=== PATIENT | female | born 1935 | race Caucasian/White ===

== ENCOUNTER 2024-06-13 12:11 | Inpatient (IN) | payer MEDICARE, OTHER, SELFPAY ==
[2024-06-13] VITALS (16 sets, daily range): BP systolic 137–189; BP diastolic 76–104; PULSE 72–130; RESP 14–26; TEMP 36.7–36.8; O2SAT 96–100; BMI 18.7
--- NOTE | ~2024-06-13 | MR_ITS ---
EXAMINATION: MR lumbar spine wo/w con DATE: 06/15/2024 16:00 INDICATION: lumbar spine . TECHNIQUE: Magnetic resonance imaging (MRI) of the lumbar spine was performed without and with 10 mL MultiHance field comp intravenous contrast. Sequences included sagittal T2-weighted FSE, sagittal T2- weighted FS FSE, sagittal T1-weighted FSE, and axial T2-weighted FSE. COMPARISON: None FINDINGS: The last fully formed and hydrated disc is designated L5-S1. Rudimentary disc at S1-S2. Tar mon[place] cysts at S1 and S2. Vertebral body hemangioma at L1. The marrow signal is benign and homogenous. Conus terminates at L1. Multilevel loss of disc height and hydration. 4 mm anterolisthesis at L4-5. N o abnormal enhancement. The following disc levels are specifically discussed: T11-T12: The disc does not extend beyond the endplate margin. There is mild facet joint osteoarthriti s. There is no neural foraminal stenosis. There is no central canal stenosis. T12-L1: The disc does not extend beyond the endplate margin. There is mild facet joint osteoarthritis . There is no neural foraminal stenosis. There is no central canal stenosis. L1-L2: Moderate diffuse bulge. 5 mm right foraminal protrusion. There is moderate bilateral facet jorge luis nt osteoarthritis. There is moderate bilateral neural foraminal stenosis. There is mild central canal stenosis. L2-L3: Moderate diffuse bulge. There is moderate bilateral facet joint osteoarthritis. There is moder ate right and mild left neural foraminal stenosis. There is mild central canal stenosis. L3-L4: Large diffuse bulge. There is moderate bilateral facet joint osteoarthritis. There is moderate bilateral neural foraminal stenosis. There is moderate central canal stenosis. L4-L5: Mild diffuse bulge with a superimposed 7 x 13 mm left subarticular extrusion extending 16 mm c ephalad along the posterior aspect of the L4 vertebral body. There is severe bilateral facet joint os teoarthritis. There is mild right and moderate left neural foraminal stenosis. There is severe centra l canal stenosis. L5-S1: Mild diffuse bulge with a broad-based 5 mm left lateral protrusion. There is moderate bilatera l facet joint osteoarthritis. There is moderate bilateral neural foraminal stenosis. There is no cent ral canal stenosis. IMPRESSION: 10 x 13 mm left subarticular L4-5 disc extrusion. Severe central canal stenosis at L4-5 secondary to degenerative disc, ligamentum and facet changes. Multilevel moderate neural foraminal narrowing. Moderate-severe degrees of facet arthropathy at all lumbar levels. Reviewed, dictated and finalized at location K. MACY PICKING TECH IMPRESSION: 10 x 13 mm left subarticular L4-5 disc extrusion. Severe central canal stenosis at L4-5 secondary to degenerative disc, ligamentu m and facet changes. Multilevel moderate neural foraminal narrowing. Moderate-severe degrees of facet arthropathy at all lumbar levels.
--- NOTE | ~2024-06-13 | US_ITS ---
EXAMINATION: US venous doppler [facility] DATE: 06/14/2024 08:44 INDICATION: Left lower limb swelling. TECHNIQUE: Grayscale ultrasound images without and with compression and Doppler ultrasound images of the left lower extremity veins were obtained. COMPARISON: None. FINDINGS: The visualized portions of left common femoral vein, profunda (deep) femoral vein, femoral vein, popl iteal vein, peroneal veins, posterior tibial veins, and greater saphenous vein outflow are patent. IMPRESSION: 1. No deep venous thrombosis. Reviewed, dictated and finalized at location A. ER
--- NOTE | ~2024-06-13 | CT_ITS ---
EXAMINATION: CT brain wo con DATE: 06/13/2024 13:12 INDICATION: Stroke TECHNIQUE: Computed tomography (CT) of the head was performed without intravenous contrast. Sagittal and coronal reconstructions were performed. The mA was adjusted according to patient size. Iterative reconstruction technique was employed. The dose-length product was 776.86 mGy-cm. COMPARISON: None FINDINGS: No acute intracranial hemorrhage, acute infarction or abnormal extra axial fluid collection. There is mild scattered white matter hypoattenuation consistent with chronic small vessel ischemic disease. S ymmetric prominence of the sulci consistent with mild age-appropriate diffuse cerebral volume loss. V entricles are normal and symmetric. No mass/mass effect. Torus palatinus. The orbits, paranasal sinus es and mastoid air cells are normal. IMPRESSION: 1. Normal aging brain. No acute intracranial process. Reviewed, dictated and finalized at location B. OCOMPOSITION KEYBOARD OPERATOR
--- NOTE | ~2024-06-13 | XR_ITS ---
EXAMINATION: XR chest 1V DATE: 06/13/2024 13:15 INDICATION: Leg weakness. TECHNIQUE: A single frontal view of the chest was obtained. COMPARISON: None. FINDINGS: There is mild scarring at the lung apices. No pleural effusion or pneumothorax. Cardiomegal y is noted. IMPRESSION: 1. Mild scarring at the lung apices. 2. Cardiomegaly. Reviewed, dictated and finalized at location A. IGERATION INSULATOR
--- NOTE | ~2024-06-13 | MR_ITS ---
EXAMINATION: MR brain/brain stem wo/w con DATE: 06/14/2024 09:09 INDICATION: Lower extremity weakness, left worse than right. TECHNIQUE: Magnetic resonance imaging (MRI) of the brain and brainstem was performed without and with 11 mL MultiHance intravenous contrast. COMPARISON: Head CT 06/13/2024 FINDINGS: There are scattered areas of nonspecific increased T2-weighted signal intensity in the cere bral white matter, which is within normal limits for the patient's age. There is no intracranial hemo rrhage, acute infarction, or abnormal intracranial mass lesion. The ventricles are normal in size. Th ere is mild mucosal thickening in the paranasal sinuses. The orbits are normal. The mastoid air cells are normal. IMPRESSION: 1. Normal aging brain. Reviewed, dictated and finalized at location A. ACT OPERATOR IMPRESSION: 1. Normal aging brain.
--- NOTE | 2024-06-13 13:01 | ECG_ITS ---
Test Date: 2024-06-13 13:20:04 Measurements Intervals [place] Rate: 90 P: 0 OK: 0 QRS: -61 QRSD: 86 T: 35 QT: 364 QTc: 447 Interpretive Statements SINUS RHYTHM FREQUENT ATRIAL PREMATURE COMPLEXES LEFT AXIS DEVIATION BORDERLINE AV CONDUCTION DELAY POSSIBLE RIGHT VENTRICULAR CONDUCTION DELAY DELAYED PRECORDIAL R/S TRANSITION BORDERLINE T WAVE ABNORMALITY- ANTERIOR LEADS ABNORMAL ECG BASELINE ARTIFACT- I, II, III, AVR, AVL, AVF, V1-V6 No previous ECG available for comparison Electronically Signed On 06-13-2024 13:34:39 SUPERVISOR TRANSFERRING AND BOXING by Catracho Tanner D.O.
[2024-06-13 13:30] LABS: Glucose Point of Care 96 mg/dl (65-105)
[2024-06-13 13:42] LABS: Basophils Absolute Auto 0.1 K/mm3 (0.0-0.1); Basophils Percent Auto 1.1 % (0.2-1.2); Eosinophils Percent Auto 0.5 % (0-4.4); Hematocrit 42.4 % (37.0-47.0); Hemoglobin 14.5 g/dL (12.0-15.0); Immature Granulocyte Absolute 0.01 K/mm3 (0.00-0.031); Immature Granulocyte Percent A 0.2 % (0-0.5); Lymphocytes Absolute Auto 0.67 K/mm3 (0.9-3.2); Lymphocytes Percent Auto 12.2 % (18.3-44.2); Mean Corpuscular HGB Conc 34.2 g/dl (32-36); Mean Corpuscular Hemoglobin 32.4 pg (26-34); Mean Corpuscular Volume 94.6 fl (80-100); Monocytes Absolute Auto 0.5 K/mm3 (0.1-0.6); Monocytes Percent Auto 8.9 % (2.6-8.5); Neutrophils Absolute Auto 4.2 K/mm3 (1.3-6.7); Neutrophils Percent Auto 77.1 % (45.5-73.1); Platelet Count Result 219 k/mm3 (150-375); Red Blood Count 4.48 M/mm3 (4.2-5.4); White Blood Count 5.5 K/mm3 (4.5-10.0)
[2024-06-13 13:56] LABS: Alanine Aminotransferase 16 U/L (6-35); Albumin Level 4.4 g/dL (3.5-5.1); Alkaline Phosphatase 57 U/L (38-126); Anion Gap 6 mmol/L (4-12); Aspartate Amino Transferase 31 U/L (14-36); Bilirubin,Total 2.5 mg/dL (0.2-1.3); Blood Urea Nitrogen 17 mg/dL (7-17); Calcium 9.5 mg/dL (8.4-10.2); Carbon Dioxide 29 mmol/L (22-30); Chloride 102 mmol/L (98-107); Estimated CRCL calculation 34 ml/min; Estimated Glomerular Filt Rate > 60; Glucose 108 mg/dL (65-110); Potassium 4.5 mmol/L (3.4-5.0); Sodium 137 mmol/L (137-145)
[2024-06-13 14:02] LABS: Prothrombin Time 13.7 Seconds (11.1-14.7)
[2024-06-13 14:03] LABS: Partial Thromboplastin Time 27.7 Seconds (22.3-36.8)
[2024-06-13 14:08] LABS: Troponin I 0.122 ng/mL (0.000-0.034)
--- NOTE | 2024-06-13 14:08 | ED_ITS ---
HPI - General Adult General Chief complaint: Extremity Problem,Nontraumatic Stated complaint: BLE weakness Time Seen by Provider: 06/13/24 12:32 History of Present Illness HPI narrative: Patient is a 88-year-old female who presents ER with bilateral lower extremity weakness. Left greater than right. Reports she has some achiness in her left applied. She was walking down steps yesterday when she suddenly developed weakness. No weakness in the upper extremities. No slurred speech. No headache. Does not see a doctor. Has significantly elevated blood pressures on arrival here. She is without nausea or vomiting. No chest pain. Had similar issue a year ago that resolved on its own. Related Data Allergies Allergy/AdvReac Type Severity Reaction Status Date / Time No Known Allergies Allergy Unknown Unverified 03/17/05 11:45 Review of Systems Review of Systems: All systems reviewed & are unremarkable except as noted in HPI and below Constitutional: Constitutional: Denies chills, Denies fever(s) and Reports weakness ENT: Reports system reviewed and no additional complaints, except as documented Cardiovascular: Cardiovascular: Reports no additional cardiovascular complaints Gastrointestinal: Gastrointestinal: Reports no additional gastrointestinal complaints Musculoskeletal: Musculoskeletal: Reports no additional musculoskeletal complaints PMFSH Past Medical History Medical History (Updated 06/13/24 @ 18:[address] MD) Healthy female adult Surgical History Surgical History (Updated 06/13/24 @ 14:[address] MD) No pertinent past surgical history Social History Social History Smoking status: Never smoker Alcohol intake: never Substance use: never Do You Feel Safe in your Home?: Yes Lack of Transportation: No Lack of Food: Never True Current Housing: I Have Housing Concerned About Future Housing: No Difficulty Paying Gas/Electric Bills: No Difficulty Paying for Meds: No Currently Unemployed: No Education: High School Diploma/GED Difficulty w/ Childcare or Family Care: No Spiritual care concerns: No Exam Narrative: GENERAL: Well-appearing, well-nourished, and in no acute distress. HEAD: Normocephalic, atraumatic. ENT: Mucous membranes moist. CHEST: Clear to auscultation. No respiratory distress. HEART: Regular rate and rhythm. Normal peripheral pulses. ABDOMEN: Soft, nontender, nondistended. EXTREMITIES: Normal range of motion. No edema. SKIN: Warm, dry, no rash. NEURO: Alert and oriented x3. No lower extremity drift. Heel-owens testing normal. Sensation grossly intact. PSYCH: Normal mood and affect. Course Course Emergency Course: patient resting comfortably. Informed patient and family of lab results and treatment plan. Discussed with hospitalist. Troponin not trending up Significant so we will give some lovenox. Vital Signs Vital signs: Vital Signs Temperature 98.2 F 06/13/24 12:26 Pulse Rate 105 H 06/13/24 12:26 Respiratory Rate 22 H 06/13/24 12:26 Blood Pressure 187/84 H 06/13/24 12:26 Pulse Oximetry 97 06/13/24 12:26 Temperature 98.2 F 06/13/24 12:26 Pulse Rate 72 06/13/24 18:00 Respiratory Rate 19 06/13/24 17:01 Blood Pressure 167/99 H 06/13/24 17:01 Pulse Oximetry 99 06/13/24 17:01 Oxygen Delivery Room Air 06/13/24 18:28 Medical Decision Making Vital Signs Vital Signs: Vital Signs Temperature 98.2 F 06/13/24 12:26 Pulse Rate 105 H 06/13/24 12:26 Respiratory Rate 22 H 06/13/24 12:26 Blood Pressure 187/84 H 06/13/24 12:26 Pulse Oximetry 97 06/13/24 12:26 Temperature 98.2 F 06/13/24 12:26 Pulse Rate 72 06/13/24 18:00 Respiratory Rate 19 06/13/24 17:01 Blood Pressure 167/99 H 06/13/24 17:01 Pulse Oximetry 99 06/13/24 17:01 Oxygen Delivery Room Air 06/13/24 18:28 Lab Data 06/13/24 13:31 06/13/24 13:31 Labs: Lab Results 06/13/24 06/13/24 06/13/24 Range/Units 13:28 13:31 16:20 WBC 5.5 (4.5-10.0) K/mm3 RBC 4.48 (4.2-5.4) M/mm3 Hgb 14.5 (12.0-15.0) g/dL Hct 42.4 (37.0-47.0) % MCV 94.6 (80-100) fl MCH 32.4 (26-34) pg MCHC 34.2 (32-36) g/dl RDW 13.0 (11.5-14.5) % Plt Count 219 (150-375) k/mm3 MPV 9.0 (7.4-10.4) fl Immature Gran % (Auto) 0.2 (0-0.5) % Neut % (Auto) 77.1 H (45.5-73.1) % Lymph % (Auto) 12.2 L (18.3-44.2) % [place] % (Auto) 8.9 H (2.6-8.5) % Eos % (Auto) 0.5 (0-4.4) % Baso % (Auto) 1.1 (0.2-1.2) % Lymph # (Auto) 0.67 L (0.9-3.2) K/mm3 [place] # (Auto) 0.5 (0.1-0.6) K/mm3 Eos # (Auto) 0.0 (0-0.3) K/mm3 Baso # (Auto) 0.1 (0.0-0.1) K/mm3 Abs Immat Gran (auto) 0.01 (0.00-0.031) K/mm3 Absolute Neuts (auto) 4.2 (1.3-6.7) K/mm3 Absolute Nucleated RBC 0.000 (0.0-0.012) K/mm3 Nucleated RBC % 0.0 (0.0-0.2) % PT 13.7 (11.1-14.7) Seconds INR 1.0 APTT 27.7 (22.3-36.8) Seconds Sodium 137 (137-145) mmol/L Potassium 4.5 (3.4-5.0) mmol/L Chloride 102 (98-107) mmol/L Carbon Dioxide 29 (22-30) mmol/L Anion Gap 6 (4-12) mmol/L BUN 17 (7-17) mg/dL Creatinine 0.80 (0.7-1.0) mg/dL Estim Creat Clear Calc 34 ml/min Estimated GFR > 60 (59 - ) Glucose 108 (65-110) mg/dL POC Capillary Glucose 96 (65-105) mg/dl Calcium 9.5 (8.4-10.2) mg/dL Total Bilirubin 2.5 H (0.2-1.3) mg/dL AST 31 (14-36) U/L ALT 16 (6-35) U/L Alkaline Phosphatase 57 (38-126) U/L Troponin I 0.122 H* 0.141 H* (0.000-0.034) ng/mL Total Protein 8.0 (6.3-8.2) g/dL Albumin 4.4 (3.5-5.1) g/dL Imaging Data Radiologist's impression: ITS Impressions Head CT 06/13/24 13:16 IMPRESSION: 1. Normal aging brain. No acute intracranial process. Chest X-Ray 06/13/24 13:21 IMPRESSION: 1. Mild scarring at the lung apices. 2. Cardiomegaly. Discharge Plan Discharge Clinical Impression: Non-ST elevation [place] (NSTEMI), Weakness Patient Disposition: Still a Patient Condition: Serious
[2024-06-13] MEDS: ASPIRIN 81 MG CHEWABLE TABLET 324 MG PO (14:43)
--- NOTE | 2024-06-13 16:19 | ECG_ITS ---
Test Date: 2024-06-13 16:27:22 Measurements Intervals [place] Rate: 61 P: 47 TN: 176 QRS: -63 QRSD: 85 T: 34 QT: 410 QTc: 414 Interpretive Statements SINUS RHYTHM WITH SINUS ARRHYTHMIA BORDERLINE AV CONDUCTION DELAY POSSIBLE RIGHT VENTRICULAR CONDUCTION DELAY LEFT ANTERIOR FASCICULAR BLOCK BORDERLINE T WAVE ABNORMALITY- ANTERIOR LEADS BASELINE ARTIFACT- I, II, III, AVR, AVL, AVF, V1-V6 ABNORMAL ECG Compared to ECG 06/13/2024 13:20:04 NO SIGNIFICANT CHANGE Electronically Signed On 06-13-2024 16:30:56 COMPRESSOR REPAIRER by Catracho Tanner D.O.
[2024-06-13 17:21] LABS: Troponin I 0.141 ng/mL (0.000-0.034)
--- NOTE | 2024-06-13 17:23 | PM.IMHP ---
H&P: HPI History of Present Illness Date/Time: 06/13/24 17:23 Chief Complaint: Weakness Narrative: 88 y/o F presents here with bilateral lower extremity weakness with no significant PMH. The patient presents here from home for further evaluation of bilateral lower extremity weakness. She reports onset yesterday at around 1-2 p.m. She noted the weakness when she had stepped down into the garage and when she went to get back in. She was able to lift the leg to take the step but unable to bear weight on it. She has only been able to pivot into bed today and yesterday since onset and has utilized a wheelchair that a family member brought for her. Now only able to bear weight for short period before she needs to sit back down. No recent trauma or falls, no low back pain or hip pain. Weakness more so on right vs the left without weakness in either upper extremity. She reports a similar episode approximately 1 year ago, symptoms resolved without intervention and were similar to today where both were weak but right more so than left. Episode only lasted for a few minutes. She denies focal numbness, changes in speech, dysphagia, word-finding difficulties, vision changes, dizziness, or headache. Denies chest pain, palpitations, shortness of breath, diaphoresis, recent illness, nausea or vomiting. The patient is currently not on any home medications and has not seen a provider for over 19 years. Initial VS at presentation: 98.2? F, HR 105, R 22, 187/84, and 97% on RA. ED workup showed: No leukocytosis, no anemia, normal coags, no significant electrolyte derangements, creatinine 0.8 and normal GFR, initial troponin 0.122. EKG showed normal sinus rhythm, rate 90, frequent PACs, left axis deviation, borderline AV conduction delay, possible right ventricular conduction delay, delayed precordial RS transition, borderline T-wave abnormality in anterior leads. No previous available for comparison. CXR showed mild scarring at the lung apices and cardiomegaly. Head CT showed a normal aging brain without acute intracranial process. Review of Systems Review of Systems: All systems reviewed & are unremarkable except as noted in HPI and below [facility] Past Medical History Medical History Healthy female adult Surgical History Surgical History No pertinent past surgical history Social History Social History Smoking status: Never smoker Alcohol intake: never Substance use: never Do You Feel Safe in your Home?: Yes Lack of Transportation: No Lack of Food: Never True Current Housing: I Have Housing Concerned About Future Housing: No Difficulty Paying Gas/Electric Bills: No Difficulty Paying for Meds: No Currently Unemployed: No Education: High School Diploma/GED Difficulty w/ Childcare or Family Care: No Spiritual care concerns: No Meds Home Medications and Allergies Allergies Allergy/AdvReac Type Severity Reaction Status Date / Time No Known Allergies Allergy Unknown Unverified 03/17/05 11:45 Vital Signs Vital Signs - 24 hr 06/13/24 12:26 06/13/24 12:29 06/13/24 12:31 Temperature 98.2 F Pulse Rate 105 H 91 103 H Respiratory Rate 22 H 26 H 22 H Blood Pressure 187/84 H 187/84 H 167/99 H Pulse Oximetry 97 96 96 06/13/24 13:18 06/13/24 14:15 06/13/24 14:31 Temperature Pulse Rate 84 84 80 Respiratory Rate 14 15 15 Blood Pressure 167/97 H 151/94 H Pulse Oximetry 100 100 98 06/13/24 14:32 06/13/24 15:02 06/13/24 16:00 Temperature Pulse Rate 80 79 81 Respiratory Rate 17 14 Blood Pressure 175/93 H Pulse Oximetry 100 100 06/13/24 15:39 06/13/24 16:01 06/13/24 16:31 Temperature Pulse Rate 83 86 78 Respiratory Rate 19 19 15 Blood Pressure 175/104 H 172/82 H Pulse Oximetry 100 97 100 06/13/24 17:01 Temperature Pulse Rate 79 Respiratory Rate 19 Blood Pressure 167/99 H Pulse Oximetry 99 Exam Const: General: comfortable and no acute distress Other: , female, elderly, nontoxic appearance HENMT: Face/Nose/Sinus: Normal nares present Mouth: Yes moist mucous membranes Eyes: General: appearance normal, both eyes and all related structures Sclera: sclerae normal Pupils: Equal, round and reactive pupils present EOM: EOMs intact bilaterally Resp: Effort & Inspection: normal respiratory effort Auscultation: clear to auscultation bilaterally Cardio: Rate: regular rate Rhythm: abnormal rhythm (Irregularly irregular verses multiple ectopic beats) GI: Other: Abdomen soft, nondistended, nontender. Normoactive bowel sounds in all quadrants. : Other: No suprapubic tenderness Skin: General skin exam: normal color and no rashes or lesions noted Other: Small area of ecchymosis to left 1st knuckle, no active bleeding. Neuro: Speech: normal speech Sensory Exam: normal sensation Other: No lower extremity drift, no ataxia ([id number] test normal). No weakness noted in upper extremities. No facial droop, dysarthria, or aphasia noted. Extrem: Other: Plus one edema to bilateral lower extremities, left worse than right with mild asymmetry. No erythema. Psych: Mental Status: mental status grossly normal Affect: normal affect Other: Good insight and judgment, pleasant H&P: Results Labs Labs: Short CBC 06/13/24 Range/Units 13:31 WBC 5.5 (4.5-10.0) K/mm3 Hgb 14.5 (12.0-15.0) g/dL Hct 42.4 (37.0-47.0) % Plt Count 219 (150-375) k/mm3 BMP 06/13/24 13:31 Sodium 137 Potassium 4.5 Chloride 102 Carbon Dioxide 29 BUN 17 Creatinine 0.80 Glucose 108 Calcium 9.5 Cardiac Enzymes 06/13/24 06/13/24 Range/Units 13:31 16:20 Troponin I 0.122 H* 0.141 H* (0.000-0.034) ng/mL Liver Function 06/13/24 Range/Units 13:31 Total Bilirubin 2.5 H (0.2-1.3) mg/dL AST 31 (14-36) U/L ALT 16 (6-35) U/L Alkaline Phosphatase 57 (38-126) U/L Albumin 4.4 (3.5-5.1) g/dL Assessment and Plan Assessment and plan (1) Lower extremity weakness: Qualifiers: Laterality: bilateral Qualified Code(s): R29.898 - Other symptoms and signs involving the musculoskeletal system Code(s): R29.898 - Other symptoms and signs involving the musculoskeletal system Status: Acute Assessment and Plan: New deficits of bilateral lower extremity weakness (left worse than right) starting on 06/13 around 1300 to 1400. - admission for observation and telemetry - not candidate for thrombolytics/thrombectomy due to timeframe - CT Head: normal aging brain. No acute intracranial process. - will hold on neurology consultation given possibility of PA. obtaining brain MRI, if abnormal then will proceed with consult. - brain MRI w/wo ordered - echo w/Bubble ordered - neuro checks Q4 - monitor daily labs, lipid panel, A1C - asymmetric edema to lower extremities, left worse than right. Ultrasound ordered. (2) Elevated troponin: Code(s): R79.89 - Other specified abnormal findings of blood chemistry Status: Acute Assessment and Plan: - EKG, initial: normal sinus rhythm, rate 90, frequent PACs, left axis deviation, borderline AV conduction delay, possible right ventricular conduction delay, delayed precordial RS transition, borderline T-wave abnormality in anterior leads. No previous available for comparison. - EKG, repeat (1): No significant change when compared to prior - CXR: Mild scarring at the lung apices and cardiomegaly - Troponin: 0.122->0.141, 3rd ordered - ASA 324 given and SL nitro PRN - cardiology consulted, awaiting recs - started on Lovenox 1 mg/kg b.i.d. - no previous echo on file, ordered - telemetry monitoring Plan Diet: Heart healthy, NPO at midnight in case of need for procedures GI Prophylaxis: Not currently indicated DVT Prophylaxis: Lovenox b.i.d. Lines: Peripheral Code Status: Full code Quality VTE Prophylaxis VTE prophylaxis: pharmacologic ordered Hospitalist [facility] Advance Care Plan I have confirmed that the patient's Advanced Care Plan is present, code status is documented, or surrogate decision maker is listed in patient medical record.: Yes Medication Reconciliation I have utilized all available resources to obtain, update and review the patients current medications (includes all prescriptions, OTC, herbals, cannabis, and nutritional supplements).: Yes
--- NOTE | 2024-06-13 18:06 | PC.NURSE ---
PAtient does not take any home meds
[2024-06-13] MEDS: ENOXAPARIN 60 MG/0.6 ML SYRINGE 56 MG SUB-Q (18:23)
[2024-06-13 19:59] LABS: Troponin I 0.142 ng/mL (0.000-0.034)
--- NOTE | 2024-06-13 20:13 | ECG_ITS ---
Test Date: 2024-06-13 20:47:13 Measurements Intervals [place] Rate: 83 P: 89 VA: 196 QRS: -53 QRSD: 84 T: 59 QT: 381 QTc: 449 Interpretive Statements SINUS RHYTHM WITH FREQUENT SUPRAVENTRICULAR PREMATURE COMPLEXES BORDERLINE AV CONDUCTION DELAY CONSIDER RIGHT VENTRICULAR CONDUCTION DELAY LEFT ANTERIOR FASCICULAR BLOCK ABNORMAL ECG BASELINE ARTIFACT- I, II, III, AVR, AVL, AVF, V1-V6 Compared to ECG 06/13/2024 16:27:22 Sinus arrhythmia no longer present Electronically Signed On 06-14-2024 16:36:31 MIXED SIGNAL DESIGN ENGINEER by Catracho Tanner D.O.
[2024-06-13] MEDS: ENOXAPARIN 60 MG/0.6 ML SYRINGE 55 MG SUB-Q (20:23)
[2024-06-14] VITALS (21 sets, daily range): BP systolic 99–160; BP diastolic 63–76; PULSE 49–132; RESP 16–20; TEMP 36.6–37.2; O2SAT 95–100
--- NOTE | 2024-06-14 | ECHO_ITS ---
Patient Info Name: Hetal Scott Age: 88 years : 1935 Gender: Female Ht: 63 in Wt: 112 lbs BSA: 1.50 m2 HR: 49 bpm BP: 156 / 76 mmHg Heart Rhythm: Sinus Rhythm Technical Quality: Good Exam Date: 06/14/2024 7:01 AM Exam Location: Echo Lab Patient Status: Inpatient Admit Date: 06/13/2024 Staff Ordering Physician: Es Stephens APRN Tree Topper: Tara Yan RDCS Attending Provider: Ian Monroy MD Referring Physician: Angelo SCHROEDER; Exam Type: CA echo doppler w bubble study Study Info Indications - elevated troponin, weakness cocerning for cva Complete two-dimensional, color flow and Doppler transthoracic echocardiogram is performed with agitated saline. Summary 1. There is normal biventricular systolic function. 2. There is no significant valvular disease. Left Ventricle The left ventricle is normal in size and systolic function. There is left ventricular concentric remodeling. The left ventricular ejection fraction is estimated to be 65-70%. Right Ventricle The right ventricle is normal in size and systolic function. Left Atria The left atrium is normal in size. Right Atria The right atrium is normal in size. Atrial Septum The atrial septum appears visually intact. Aortic Valve The aortic valve is trileaflet and opens well. There is no aortic regurgitation. Pulmonic Valve The pulmonic valve is grossly normal. There is no color Doppler evidence of pulmonic valve regurgitation. Mitral Valve The mitral valve is sclerotic. There is trace mitral regurgitation. Tricuspid Valve The tricuspid valve is grossly normal. There is mild tricuspid regurgitation. Pericardium/Pleural Pericardium is normal in appearance with no evidence for significant pericardial effusion. Inferior Vena Cava Inferior vena cava is not well visualized. Aorta The aorta root at the level of the sinus of Valsalva measures 3.5 cm in diameter. Left Ventricular Outflow Tract Name Value Normal LVOT 2D LVOT Diameter 2.1 cm LVOT Doppler LVOT Peak Gradient 8 mmHg LVOT Mean Gradient 4 mmHg LVOT VTI 36 cm LVOT VTI/AV VTI Ratio 1.3 LVOT Stroke Volume 127 ml LVOT CO 7.3 l/min LVOT CI 4.8 l/min/m2 Mitral Valve Name Value Normal MV Doppler MV Decel [place] 267 cm/s2 MV PHT 70 ms MV Area (PHT) 3.1 cm2 4.0-5.0 MV Regurgitation Doppler MR Peak Gradient 161 mmHg MV Diastolic Function MV E Peak Velocity 65 cm/s MV A Peak Velocity 97 cm/s MV E/A 0.7 MV Decel Time 242 ms MV Annular TDI MV E/e' (Septal) 13.6 <=8.0 MV E/e' (Lateral) 10.6 <=8.0 MV E/e' (Average) 12.1 Tricuspid Valve Name Value Normal TV Regurgitation Doppler TR Peak Velocity 295 cm/s TR Peak Gradient 35 mmHg Estimated PAP/RSVP RA Pressure 10 mmHg <=5 PA Systolic Pressure 45 mmHg <36 RV Systolic Pressure 45 mmHg <36 Aortic Valve Name Value Normal AV Doppler AV Peak Velocity 130 cm/s AV Peak Gradient 7 mmHg AV Mean Gradient 4 mmHg AV VTI 28 cm AV Area (Cont Eq VTI) 4.5 cm2 >=3.0 AV Area (Cont Eq Oziel) 3.8 cm2 AV Regurgitation 2D LVOT Area 3.6 cm2 Ventricles Name Value Normal LV Dimensions 2D/MM IVS Diastolic Thickness (2D) 1.2 cm 0.6-1.0 LVID Diastole (2D) 3.7 cm 3.8-5.2 LVIW Diastolic Thickness (2D) 1.1 cm 0.6-0.9 LVID Systole (2D) 2.5 cm 2.2-3.5 LVOT Diameter 2.1 cm LV Mass (2D Cubed) 137.16 g 67.00-162.00 LV Mass Index (2D Cubed) 91 g/m2 43-95 Relative Wall Thickness (2D) 0.58 LV Fractional Shortening/Ejection Fraction 2D/MM LV Fractional Shortening (2D) 32 % 27-45 LV EF (2D Teichjo-ann) 61 % 54-74 LV Diastolic Volume (4C MOD) 49 ml LV EF (4C MOD) 69 % LV Diastolic Volume (2C MOD) 40 ml LV EF (2C MOD) 68 % LV Diastolic Volume (BP MOD) 44 ml 46-106 LV Diastolic Volume Index (BP MOD) 29 ml/m2 29-61 LV Systolic Volume (BP MOD) 15 ml 14-42 LV Systolic Volume Index (BP MOD) 10 ml/m2 8-24 LV EF (BP MOD) 67 % 54-74 LV Diastolic Length (4C) 6.7 cm LV Systolic Length (4C) 5.7 cm LV Stroke Volume (4C MOD) 33 ml Atria Name Value Normal LA Dimensions LA Volume (4C A-L) 21 ml LA Volume (BP A-L) 19 ml RA Dimensions RA Area (4C) 13.7 cm2 <=18.0 Report Signatures Amended by Checo Vanegas on 06/14/2024 14:58
--- NOTE | 2024-06-14 02:05 | PC.NURSE ---
Confirmed with EKG at 2046 patient was in SR w/PACs. Overnight patient has been SR-SB w/PACs.
[2024-06-14 04:58] LABS: Basophils Absolute Auto 0.1 K/mm3 (0.0-0.1); Basophils Percent Auto 1.2 % (0.2-1.2); Eosinophils Absolute Auto 0.2 K/mm3 (0-0.3); Eosinophils Percent Auto 3.8 % (0-4.4); Hematocrit 40.8 % (37.0-47.0); Hemoglobin 13.8 g/dL (12.0-15.0); Immature Granulocyte Absolute 0.01 K/mm3 (0.00-0.031); Immature Granulocyte Percent A 0.2 % (0-0.5); Lymphocytes Absolute Auto 0.99 K/mm3 (0.9-3.2); Lymphocytes Percent Auto 17.1 % (18.3-44.2); Mean Corpuscular HGB Conc 33.8 g/dl (32-36); Mean Corpuscular Hemoglobin 32.4 pg (26-34); Mean Corpuscular Volume 95.8 fl (80-100); Mean Platelet Volume 9.9 fl (7.4-10.4); Monocytes Absolute Auto 0.7 K/mm3 (0.1-0.6); Monocytes Percent Auto 11.2 % (2.6-8.5); Neutrophils Absolute Auto 3.9 K/mm3 (1.3-6.7); Neutrophils Percent Auto 66.5 % (45.5-73.1); Platelet Count Result 227 k/mm3 (150-375); Red Blood Count 4.26 M/mm3 (4.2-5.4); White Blood Count 5.8 K/mm3 (4.5-10.0)
[2024-06-14 05:16] LABS: Alanine Aminotransferase 13 U/L (6-35); Albumin Level 3.6 g/dL (3.5-5.1); Alkaline Phosphatase 43 U/L (38-126); Anion Gap 4 mmol/L (4-12); Aspartate Amino Transferase 28 U/L (14-36); Blood Urea Nitrogen 16 mg/dL (7-17); Calcium 8.7 mg/dL (8.4-10.2); Carbon Dioxide 29 mmol/L (22-30); Chloride 104 mmol/L (98-107); Cholesterol 193 mg/dL (0-200); Estimated CRCL calculation 32 ml/min; Estimated Glomerular Filt Rate > 60; Glucose 83 mg/dL (65-110); HDL Direct 83 mg/dL; Potassium 3.7 mmol/L (3.4-5.0); Sodium 137 mmol/L (137-145); Triglycerides 58 mg/dL (<150)
[2024-06-14 05:24] LABS: Hemoglobin A1C 5.6 % (<5.7)
[2024-06-14 05:26] LABS: LDL Cholesterol Direct 79 mg/dL
[2024-06-14] MEDS: ASPIRIN 81 MG CHEWABLE TABLET PO (09:29)
[2024-06-14] MEDS: ENOXAPARIN 60 MG/0.6 ML SYRINGE 55 MG SUB-Q (09:29)
--- NOTE | 2024-06-14 12:40 | PM.IMPN ---
Progress Note: A&P Assessment and Plan (1) Lower extremity weakness: Qualifiers: Laterality: bilateral Qualified Code(s): R29.898 - Other symptoms and signs involving the musculoskeletal system Code(s): R29.898 - Other symptoms and signs involving the musculoskeletal system Status: Acute Assessment and Plan: right leg weakness reported , transient. hx notes bialteral lower ext weakness left more than right. currenlty no weakness noted. will have PT OT see. Brain MRI negative. - CT Head: normal aging brain. No acute intracranial process. - echo w/Bubble ordered - neuro checks Q4 - monitor daily labs, lipid panel, A1C - asymmetric edema to lower extremities, left worse than right. Ultrasound negative for DVT on LLE (2) Elevated troponin: Code(s): R79.89 - Other specified abnormal findings of blood chemistry Status: Acute Assessment and Plan: - EKG, initial: normal sinus rhythm, rate 90, frequent PACs, left axis deviation, borderline AV conduction delay, possible right ventricular conduction delay, delayed precordial RS transition, borderline T-wave abnormality in anterior leads. No previous available for comparison. - EKG, repeat (1): No significant change when compared to prior - CXR: Mild scarring at the lung apices and cardiomegaly - Troponin: 0.122->0.141, flat trend - ASA 324 given and SL nitro PRN - cardiology consulted, awaiting recs - started on Lovenox 1 mg/kg b.i.d. - no previous echo on file, ordered - telemetry monitoring afib noted on telelmetry. add betablocker CHADSVasc score 4 willl need anticoagulation. tania planned currently on lovenox (3) Atrial fibrillation: Code(s): I48.91 - Unspecified atrial fibrillation Status: Acute Assessment and Plan: afib noted on telelmetry. add betablocker CHADSVasc score 4 willl need anticoagulation. tania planned currently on lovenox echo pending Plan Diet: Heart healthy GI Prophylaxis: Not currently indicated DVT Prophylaxis: Lovenox b.i.d. Lines: Peripheral Code Status: Full code Subjective Date/time seen: 06/14/24 12:40 Interval history: no new complaints. no fever, chills. difficulty walking with right leg on Review of Systems Review of Systems: All systems reviewed & are unremarkable except as noted in HPI and below Exam Narrative: GENERAL: Well-appearing, well-nourished, and in no acute distress. HEAD: Normocephalic, atraumatic. ENT: Mucous membranes moist. CHEST: Clear to auscultation. No respiratory distress. HEART: Regular rate and rhythm. Normal peripheral pulses. ABDOMEN: Soft, nontender, nondistended. EXTREMITIES: Normal range of motion. No edema. SKIN: Warm, dry, no rash. NEURO: Alert and oriented x3. No lower extremity drift. Heel-owens testing normal. Sensation grossly intact. PSYCH: Normal mood and affect. Objective Data Vital Signs Vital Signs: Vital Signs - 24 hr 06/13/24 13:18 06/13/24 14:15 06/13/24 14:31 Temperature Pulse Rate 84 84 80 Respiratory Rate 14 15 15 Blood Pressure 167/97 H 151/94 H Pulse Oximetry 100 100 98 Oxygen Delivery 06/13/24 14:32 06/13/24 15:02 06/13/24 16:00 Temperature Pulse Rate 80 79 81 Respiratory Rate 17 14 Blood Pressure 175/93 H Pulse Oximetry 100 100 Oxygen Delivery 06/13/24 15:39 06/13/24 16:01 06/13/24 16:31 Temperature Pulse Rate 83 86 78 Respiratory Rate 19 19 15 Blood Pressure 175/104 H 172/82 H Pulse Oximetry 100 97 100 Oxygen Delivery 06/13/24 17:01 06/13/24 18:00 06/13/24 18:28 Temperature Pulse Rate 79 72 Respiratory Rate 19 Blood Pressure 167/99 H Pulse Oximetry 99 Oxygen Delivery Room Air 06/13/24 18:00 06/13/24 21:19 06/13/24 20:15 Temperature 98.1 F 98.1 F Pulse Rate 88 130 H Respiratory Rate 20 20 Blood Pressure 189/92 H 137/76 Pulse Oximetry 98 98 Oxygen Delivery Room Air 06/14/24 00:05 06/13/24 22:00 06/14/24 00:00 Temperature 98 F Pulse Rate 88 76 66 Respiratory Rate 20 Blood Pressure 126/74 Pulse Oximetry 98 Oxygen Delivery 06/14/24 00:00 06/14/24 02:00 06/14/24 04:14 Temperature 98.2 F Pulse Rate 69 52 L Respiratory Rate 20 Blood Pressure 156/76 H Pulse Oximetry 98 Oxygen Delivery Room Air 06/14/24 04:00 06/14/24 06:00 06/14/24 04:00 Temperature Pulse Rate 60 49 L Respiratory Rate Blood Pressure Pulse Oximetry Oxygen Delivery Room Air 06/14/24 08:16 06/14/24 08:00 06/14/24 08:00 Temperature 98.1 F Pulse Rate 78 74 Respiratory Rate 16 Blood Pressure 129/76 Pulse Oximetry 98 Oxygen Delivery Room Air 06/14/24 10:00 06/14/24 11:19 06/14/24 11:20 Temperature 98.0 F Pulse Rate 109 H 132 H Respiratory Rate 18 Blood Pressure 99/63 L 125/64 Pulse Oximetry 97 Oxygen Delivery 06/14/24 12:00 06/14/24 12:00 Temperature Pulse Rate 99 Respiratory Rate Blood Pressure Pulse Oximetry Oxygen Delivery Room Air Intake/Output Intake/Output: Intake & Output 06/11/24 06/12/24 06/13/24 06/14/24 23:59 23:59 23:59 23:59 Intake Total 320 Output Total 300 Balance 20 Meds/Results Medications: Active Medications Generic Name Dose Route Start Last Admin Trade Name Freq PRN Reason Stop Dose Admin Acetaminophen 650 mg 06/13/24 16:34 Acetaminophen 325 Mg Tablet PO Q4H PRN Mild Pain (1-3) or Fever Hydrocodone Bitart/Acetaminophen 1 tab 06/13/24 16:34 Hydrocodone/Acetaminophen (*Crx) 5-325 Mg Tablet PO Q4H PRN Pain Rated 4-6 Aspirin 81 mg 06/14/24 08:00 06/14/24 09:29 Aspirin 81 Mg Chewable Tablet PO 81 mg DAILY@0800 JACKIE Administration Enoxaparin Sodium 55 mg 06/13/24 21:00 06/14/24 09:29 Enoxaparin 60 Mg/0.6 Ml Syringe SUB-Q 55 mg Q12HR JACKIE Administration Nitroglycerin 0.4 mg 06/13/24 17:32 Nitroglycerin Sl 0.4 Mg Tablet SUBLINGUAL Q5MIN PRN Chest Pain Ondansetron HCl 4 mg 06/13/24 16:34 Ondansetron Inj 4 Mg/2 Ml Vial IV PUSH Q4H PRN Nausea Perflutren Lipid Microsphere 0 ml 06/13/24 17:31 Perflutren Lipid Microspheres 1.5 Ml Vial Diluted To 10 Ml Total Volume IV PUSH 11/18/24 17:31 ONCE PRN adequate visualization Protocol Radiology Results: ITS Impressions Head CT 06/13/24 13:16 IMPRESSION: 1. Normal aging brain. No acute intracranial process. Chest X-Ray 06/13/24 13:21 IMPRESSION: 1. Mild scarring at the lung apices. 2. Cardiomegaly. Venous Doppler Study 06/14/24 08:50 IMPRESSION: 1. No deep venous thrombosis. Brain MRI 06/14/24 09:19 IMPRESSION: 1. Normal aging brain. Labs Labs: Laboratory Results - last 24 hr 06/13/24 06/13/24 06/13/24 13:28 13:31 16:20 WBC 5.5 RBC 4.48 Hgb 14.5 Hct 42.4 MCV 94.6 MCH 32.4 MCHC 34.2 RDW 13.0 Plt Count 219 MPV 9.0 Immature Gran % (Auto) 0.2 Neut % (Auto) 77.1 H Lymph % (Auto) 12.2 L [place] % (Auto) 8.9 H Eos % (Auto) 0.5 Baso % (Auto) 1.1 Lymph # (Auto) 0.67 L [place] # (Auto) 0.5 Eos # (Auto) 0.0 Baso # (Auto) 0.1 Abs Immat Gran (auto) 0.01 Absolute Neuts (auto) 4.2 Absolute Nucleated RBC 0.000 Nucleated RBC % 0.0 PT 13.7 INR 1.0 APTT 27.7 Sodium 137 Potassium 4.5 Chloride 102 Carbon Dioxide 29 Anion Gap 6 BUN 17 Creatinine 0.80 Estim Creat Clear Calc 34 Estimated GFR > 60 Glucose 108 POC Capillary Glucose 96 Hemoglobin A1c Calcium 9.5 Total Bilirubin 2.5 H AST 31 ALT 16 Alkaline Phosphatase 57 Troponin I 0.122 H* 0.141 H* Total Protein 8.0 Albumin 4.4 Triglycerides Cholesterol LDL Cholesterol Direct HDL Direct 06/13/24 06/14/24 19:08 04:13 WBC 5.8 RBC 4.26 Hgb 13.8 Hct 40.8 MCV 95.8 MCH 32.4 MCHC 33.8 RDW 13.0 Plt Count 227 MPV 9.9 Immature Gran % (Auto) 0.2 Neut % (Auto) 66.5 Lymph % (Auto) 17.1 L [place] % (Auto) 11.2 H Eos % (Auto) 3.8 Baso % (Auto) 1.2 Lymph # (Auto) 0.99 [place] # (Auto) 0.7 H Eos # (Auto) 0.2 Baso # (Auto) 0.1 Abs Immat Gran (auto) 0.01 Absolute Neuts (auto) 3.9 Absolute Nucleated RBC 0.000 Nucleated RBC % 0.0 PT INR APTT Sodium 137 Potassium 3.7 Chloride 104 Carbon Dioxide 29 Anion Gap 4 BUN 16 Creatinine 0.80 Estim Creat Clear Calc 32 Estimated GFR > 60 Glucose 83 POC Capillary Glucose Hemoglobin A1c 5.6 Calcium 8.7 Total Bilirubin 2.0 H AST 28 ALT 13 Alkaline Phosphatase 43 Troponin I 0.142 H* Total Protein 7.0 Albumin 3.6 Triglycerides 58 Cholesterol 193 LDL Cholesterol Direct 79 HDL Direct 83
[2024-06-14] MEDS: METOPROLOL SUCCINATE EXT REL 12.5 MG TABCR PO (12:57)
--- NOTE | 2024-06-14 16:05 | PM.CNCAR ---
Assessment and Plan Assessment and plan (1) Atrial fibrillation: Code(s): I48.91 - Unspecified atrial fibrillation Status: Acute (2) Non-ST elevation HI (NSTEMI): Code(s): I21.4 - Non-ST elevation (NSTEMI) myocardial infarction Status: Acute (3) Lower extremity weakness: Qualifiers: Laterality: bilateral Qualified Code(s): R29.898 - Other symptoms and signs involving the musculoskeletal system Code(s): R29.898 - Other symptoms and signs involving the musculoskeletal system Status: Acute Plan 88-year-old woman with no significant past medical history presented with bilateral lower extremity weakness found to have elevated biomarkers Elevated troponin -clinically base of her subjective history, this does not appear to be related to acute coronary syndrome -will obtain creatinine kinase as well as a lactate level -echocardiogram shows normal biventricular systolic function Paroxysmal atrial fibrillation -appears that she has runs of paroxysmal atrial fibrillation on telemetry -metoprolol tartrate 50 mg p.o. b.i.d. -elevated chads Vasc score and would start Eliquis 2.5 mg p.o. b.i.d. given her age and weight Bilateral lower extremity weakness -she denies any pain in her lower extremity and her lower extremity feels warm not suggestive of acute limb ischemia History of Present Illness History of Present Illness Consult date/time: 06/14/24 16:05 Requesting physician: Es Stephens APRN Consult reason: Other Reason For Visit: Weakness, nstemi Narrative: 88-year-old woman with no significant past medical history presented with bilateral lower extremity weakness. She reported that yesterday afternoon she was no longer able to bear her own weight and became wheelchair-bound. Prior to this event, she denies any chest pain, shortness of breath, or loss of consciousness. Other than this event, she is fully functional and able to ambulate without cardiopulmonary limitations. Her physical activities include gardening. Last month she received her COVID and flu vaccinations. Review of Systems Cardiovascular: Cardiovascular: Reports as per HPI Respiratory: Respiratory: Reports as per HPI [facility] Past Medical History Medical History Healthy female adult Surgical History Surgical History No pertinent past surgical history Social History Social History Smoking status: Never smoker Alcohol intake: never Substance use: never Do You Feel Safe in your Home?: Yes Lack of Transportation: No Lack of Food: Never True Current Housing: I Have Housing Concerned About Future Housing: No Difficulty Paying Gas/Electric Bills: No Difficulty Paying for Meds: No Currently Unemployed: No Education: High School Diploma/GED Difficulty w/ Childcare or Family Care: No Spiritual care concerns: No Meds Home Medications and Allergies Allergies Allergy/AdvReac Type Severity Reaction Status Date / Time No Known Allergies Allergy Unknown Unverified 03/17/05 11:45 Vital Signs Vital Signs - 24 hr 06/13/24 16:31 06/13/24 17:01 06/13/24 18:00 Temperature Pulse Rate 78 79 72 Respiratory Rate 15 19 Blood Pressure 172/82 H 167/99 H Pulse Oximetry 100 99 Oxygen Delivery 06/13/24 18:28 06/13/24 18:00 06/13/24 21:19 Temperature 36.7 C 36.7 C Pulse Rate 88 130 H Respiratory Rate 20 20 Blood Pressure 189/92 H 137/76 Pulse Oximetry 98 98 Oxygen Delivery Room Air 06/13/24 20:15 06/14/24 00:05 06/13/24 22:00 Temperature 36.6 C Pulse Rate 88 76 Respiratory Rate 20 Blood Pressure 126/74 Pulse Oximetry 98 Oxygen Delivery Room Air 06/14/24 00:00 06/14/24 00:00 06/14/24 02:00 Temperature Pulse Rate 66 69 Respiratory Rate Blood Pressure Pulse Oximetry Oxygen Delivery Room Air 06/14/24 04:14 06/14/24 04:00 06/14/24 06:00 Temperature 36.8 C Pulse Rate 52 L 60 49 L Respiratory Rate 20 Blood Pressure 156/76 H Pulse Oximetry 98 Oxygen Delivery 06/14/24 04:00 06/14/24 08:16 06/14/24 08:00 Temperature 36.7 C Pulse Rate 78 74 Respiratory Rate 16 Blood Pressure 129/76 Pulse Oximetry 98 Oxygen Delivery Room Air 06/14/24 08:00 06/14/24 10:00 06/14/24 11:19 Temperature 36.7 C Pulse Rate 109 H 132 H Respiratory Rate 18 Blood Pressure 99/63 L Pulse Oximetry 97 Oxygen Delivery Room Air 06/14/24 11:20 06/14/24 12:00 06/14/24 12:00 Temperature Pulse Rate 99 Respiratory Rate Blood Pressure 125/64 Pulse Oximetry Oxygen Delivery Room Air 06/14/24 12:57 06/14/24 14:00 06/14/24 15:17 Temperature 36.8 C Pulse Rate 104 H 77 92 Respiratory Rate 16 Blood Pressure 160/65 H Pulse Oximetry 95 Oxygen Delivery 06/14/24 15:54 Temperature Pulse Rate Respiratory Rate Blood Pressure Pulse Oximetry Oxygen Delivery Room Air Exam Const: General: comfortable HENMT: Mouth: Yes moist mucous membranes Eyes: EOM: EOMs intact bilaterally Neck: Neck: no JVD Resp: Effort & Inspection: normal respiratory effort Auscultation: clear to auscultation bilaterally Cardio: Rate: regular rate Rhythm: regular rhythm GI: GI Palp: Yes Soft to palpation Neuro: Speech: normal speech Extrem: General: normal to inspection Psych: Affect: normal affect Results Labs and Meds 06/14/24 04:13 06/14/24 04:13 Lab results: Cardiac Enzymes 06/13/24 06/13/24 06/14/24 Range/Units 16:20 19:08 04:13 AST 28 (14-36) U/L Troponin I 0.141 H* 0.142 H* (0.000-0.034) ng/mL Lipids 06/14/24 Range/Units 04:13 Triglycerides 58 (<150) mg/dL Cholesterol 193 (0-200) mg/dL CBC 06/14/24 Range/Units 04:13 WBC 5.8 (4.5-10.0) K/mm3 RBC 4.26 (4.2-5.4) M/mm3 Hgb 13.8 (12.0-15.0) g/dL Hct 40.8 (37.0-47.0) % Plt Count 227 (150-375) k/mm3 Lymph # (Auto) 0.99 (0.9-3.2) K/mm3 [place] # (Auto) 0.7 H (0.1-0.6) K/mm3 Eos # (Auto) 0.2 (0-0.3) K/mm3 Baso # (Auto) 0.1 (0.0-0.1) K/mm3 Comprehensive Metabolic Panel 06/14/24 Range/Units 04:13 Sodium 137 (137-145) mmol/L Potassium 3.7 (3.4-5.0) mmol/L Chloride 104 (98-107) mmol/L Carbon Dioxide 29 (22-30) mmol/L BUN 16 (7-17) mg/dL Creatinine 0.80 (0.7-1.0) mg/dL Glucose 83 (65-110) mg/dL Calcium 8.7 (8.4-10.2) mg/dL AST 28 (14-36) U/L ALT 13 (6-35) U/L Alkaline Phosphatase 43 (38-126) U/L Total Protein 7.0 (6.3-8.2) g/dL Albumin 3.6 (3.5-5.1) g/dL Intake and Output 06/14/24 06/14/24 06/14/24 07:59 15:59 23:59 Intake Total 200 120 Output Total 300 Balance -100 120 Intake: Oral 200 120 Output: Urine 300 Other: # Unmeasured Voids 1 # Incontinent Voids 2 Patient Weight 06/14/24 23:59 Weight 48.6 kg
[2024-06-14] MEDS: METOPROLOL TARTRATE 25 MG TABLET PO (20:35)
[2024-06-14] MEDS: APIXABAN 2.5 MG TABLET PO (20:35)
[2024-06-15] VITALS (16 sets, daily range): BP systolic 138–172; BP diastolic 66–76; PULSE 50–88; RESP 14–18; TEMP 36.4–36.5; O2SAT 97–100
[2024-06-15 05:06] LABS: Lactic Acid Reflex 0.7 mmol/L (0.7-2.0)
[2024-06-15 05:19] LABS: Troponin I 0.031 ng/mL (0.000-0.034)
[2024-06-15 05:40] LABS: Creatine Kinase 119 U/L (30-135)
[2024-06-15] MEDS: METOPROLOL TARTRATE 25 MG TABLET PO (09:33)
[2024-06-15] MEDS: APIXABAN 2.5 MG TABLET PO ×2 (09:33→20:45)
[2024-06-15] MEDS: ASPIRIN 81 MG CHEWABLE TABLET PO (09:33)
--- NOTE | 2024-06-15 10:11 | P.PNCA_ITS ---
Progress Note: A&P Assessment and Plan (1) Atrial fibrillation: Code(s): I48.91 - Unspecified atrial fibrillation Status: Acute (2) Elevated troponin: Code(s): R79.89 - Other specified abnormal findings of blood chemistry Status: Acute (3) Lower extremity weakness: Qualifiers: Laterality: bilateral Qualified Code(s): R29.898 - Other symptoms and signs involving the musculoskeletal system Code(s): R29.898 - Other symptoms and signs involving the musculoskeletal system Status: Acute Plan 88-year-old woman with no significant past medical history presented with bilateral lower extremity weakness found to have elevated biomarkers Paroxysmal atrial fibrillation -consolidate metoprolol to metoprolol succinate 25 mg p.o. daily and continue Eliquis 2.5 mg p.o. b.i.d. cardiology signing off. call with questions Subjective Date/time seen: 06/15/24 10:11 Interval history: No chest pain or shortness of breath. Denied bleeding. Is able to move her legs however has not been able to ambulate. Waiting for physical therapy Review of Systems Constitutional: Constitutional: Reports as per HPI Cardiovascular: Cardiovascular: Reports as per HPI Respiratory: Respiratory: Reports as per HPI Exam Const: General: comfortable HENMT: Mouth: Yes moist mucous membranes Eyes: EOM: EOMs intact bilaterally Neck: Neck: no JVD Resp: Auscultation: clear to auscultation bilaterally Cardio: Rate: regular rate Rhythm: regular rhythm GI: GI Palp: Yes Soft to palpation Neuro: Speech: normal speech Objective Data Vital Signs Vital Signs: Vital Signs - 24 hr 06/14/24 11:19 06/14/24 11:20 06/14/24 12:00 Temperature 36.7 C Pulse Rate 132 H 99 Respiratory Rate 18 Blood Pressure 99/63 L 125/64 Pulse Oximetry 97 Oxygen Delivery 06/14/24 12:00 06/14/24 12:57 06/14/24 14:00 Temperature Pulse Rate 104 H 77 Respiratory Rate Blood Pressure Pulse Oximetry Oxygen Delivery Room Air 06/14/24 15:17 06/14/24 15:54 06/14/24 16:00 Temperature 36.8 C Pulse Rate 92 106 H Respiratory Rate 16 Blood Pressure 160/65 H Pulse Oximetry 95 Oxygen Delivery Room Air 06/14/24 18:00 06/14/24 19:34 06/14/24 20:35 Temperature 37.2 C Pulse Rate 95 65 85 Respiratory Rate 16 Blood Pressure 140/68 Pulse Oximetry 100 Oxygen Delivery 06/14/24 20:00 06/14/24 22:00 06/14/24 20:30 Temperature Pulse Rate 58 L 64 Respiratory Rate Blood Pressure Pulse Oximetry Oxygen Delivery Room Air 06/15/24 00:23 06/15/24 00:00 06/15/24 00:00 Temperature 36.4 C Pulse Rate 76 52 L Respiratory Rate 16 Blood Pressure 158/74 H Pulse Oximetry 100 Oxygen Delivery Room Air 06/15/24 02:00 06/15/24 04:03 06/15/24 04:00 Temperature 36.4 C Pulse Rate 50 L 54 L Respiratory Rate 16 Blood Pressure 140/70 Pulse Oximetry 100 Oxygen Delivery Room Air 06/15/24 04:00 06/15/24 06:00 06/15/24 07:28 Temperature Pulse Rate 51 L 51 L 86 Respiratory Rate 14 Blood Pressure 172/66 H Pulse Oximetry 98 Oxygen Delivery 06/15/24 09:33 06/15/24 08:00 06/15/24 08:00 Temperature Pulse Rate 82 88 Respiratory Rate Blood Pressure Pulse Oximetry 98 Oxygen Delivery Room Air 06/15/24 09:49 Temperature Pulse Rate 79 Respiratory Rate Blood Pressure Pulse Oximetry Oxygen Delivery Intake/Output Intake/Output: Intake & Output 06/12/24 06/13/24 06/14/24 06/15/24 23:59 23:59 23:59 23:59 Intake Total 860 660 Output Total 450 500 Balance 410 160 Meds/Results Medications: Active Medications Generic Name Dose Route Start Last Admin Trade Name Freq PRN Reason Stop Dose Admin Acetaminophen 650 mg 06/13/24 16:34 Acetaminophen 325 Mg Tablet PO Q4H PRN Mild Pain (1-3) or Fever Hydrocodone Bitart/Acetaminophen 1 tab 06/13/24 16:34 Hydrocodone/Acetaminophen (*Crx) 5-325 Mg Tablet PO Q4H PRN Pain Rated 4-6 Apixaban 2.5 mg 06/14/24 21:00 06/15/24 09:33 Apixaban 2.5 Mg Tablet PO 2.5 mg Q12HR JACKIE Administration Aspirin 81 mg 06/14/24 08:00 06/15/24 09:33 Aspirin 81 Mg Chewable Tablet PO 81 mg DAILY@0800 COUNT INCLUDES THE [facility] Administration Metoprolol Succinate 25 mg 06/16/24 09:00 Metoprolol Succinate Ext Rel 25 Mg Tabcr PO QAM COUNT INCLUDES THE [facility] Nitroglycerin 0.4 mg 06/13/24 17:32 Nitroglycerin Sl 0.4 Mg Tablet SUBLINGUAL Q5MIN PRN Chest Pain Ondansetron HCl 4 mg 06/13/24 16:34 Ondansetron Inj 4 Mg/2 Ml Vial IV PUSH Q4H PRN Nausea Perflutren Lipid Microsphere 0 ml 06/13/24 17:31 Perflutren Lipid Microspheres 1.5 Ml Vial Diluted To 10 Ml Total Volume IV PUSH 06/16/24 17:31 ONCE PRN adequate visualization Protocol Radiology Results: ITS Impressions Head CT 06/13/24 13:16 IMPRESSION: 1. Normal aging brain. No acute intracranial process. Chest X-Ray 06/13/24 13:21 IMPRESSION: 1. Mild scarring at the lung apices. 2. Cardiomegaly. Venous Doppler Study 06/14/24 08:50 IMPRESSION: 1. No deep venous thrombosis. Brain MRI 06/14/24 09:19 IMPRESSION: 1. Normal aging brain. Labs Labs: Laboratory Results - last 24 hr 06/15/24 06/15/24 04:20 04:20 Lactic Acid 0.7 Total Creatine Kinase Cancelled 119 Troponin I 0.031
--- NOTE | 2024-06-15 11:21 | PC.NURSE ---
This patient, Hetal Scott, was transferred to [facility] on 06/15/24 at 1121. Personal belongings sent with patient. Report given to Katty. Appropriate documentation sent with patient.
--- NOTE | 2024-06-15 12:24 | PM.IMPN ---
Progress Note: A&P Assessment and Plan (1) Lower extremity weakness: Qualifiers: Laterality: bilateral Qualified Code(s): R29.898 - Other symptoms and signs involving the musculoskeletal system Code(s): R29.898 - Other symptoms and signs involving the musculoskeletal system Status: Acute Assessment and Plan: right leg weakness reported , transient. hx notes bialteral lower ext weakness left more than right. currenlty no weakness noted. will have PT OT see. Brain MRI negative. - CT Head: normal aging brain. No acute intracranial process. - echo w/Bubble ordered - neuro checks Q4 - monitor daily labs, lipid panel, A1C - asymmetric edema to lower extremities, left worse than right. Ultrasound negative for DVT on LLE Lower extremity weakness suspect spinal etiology will get MRI lumbar spine Neurology consult (2) Elevated troponin: Code(s): R79.89 - Other specified abnormal findings of blood chemistry Status: Acute Assessment and Plan: - EKG, initial: normal sinus rhythm, rate 90, frequent PACs, left axis deviation, borderline AV conduction delay, possible right ventricular conduction delay, delayed precordial RS transition, borderline T-wave abnormality in anterior leads. No previous available for comparison. - EKG, repeat (1): No significant change when compared to prior - CXR: Mild scarring at the lung apices and cardiomegaly - Troponin: 0.122->0.141, flat trend - ASA 324 given and SL nitro PRN - cardiology consulted, awaiting recs - started on Lovenox 1 mg/kg b.i.d. - no previous echo on file, ordered - telemetry monitoring afib noted on telelmetry. add betablocker; CHADSVasc score 4 willl need anticoagulation. eliquis started (3) Atrial fibrillation: Code(s): I48.91 - Unspecified atrial fibrillation Status: Acute Assessment and Plan: afib noted on telelmetry. add betablocker CHADSVasc score 4 willl need anticoagulation. eveliaquis planned currently on lovenox echo pending Plan Diet: Heart healthy GI Prophylaxis: Not currently indicated DVT Prophylaxis: Lovenox b.i.d. Lines: Peripheral Code Status: Full code Subjective Date/time seen: 06/15/24 12:24 Interval history: work with therapy. Bilateral lower extremity weakness noted discussed with physical therapist. No chest pain. Intermittent AFib with RVR currently in sinus rhythm Review of Systems Review of Systems: All systems reviewed & are unremarkable except as noted in HPI and below Exam Narrative: GENERAL: Well-appearing, well-nourished, and in no acute distress. HEAD: Normocephalic, atraumatic. ENT: Mucous membranes moist. CHEST: Clear to auscultation. No respiratory distress. HEART: Regular rate and rhythm. Normal peripheral pulses. ABDOMEN: Soft, nontender, nondistended. EXTREMITIES: Normal range of motion. No edema. SKIN: Warm, dry, no rash. NEURO: Alert and oriented x3. No lower extremity drift. Heel-owens testing normal. Sensation grossly intact. PSYCH: Normal mood and affect. Objective Data Vital Signs Vital Signs: Vital Signs - 24 hr 06/14/24 12:57 06/14/24 14:00 06/14/24 15:17 Temperature 98.3 F Pulse Rate 104 H 77 92 Respiratory Rate 16 Blood Pressure 160/65 H Pulse Oximetry 95 Oxygen Delivery 06/14/24 15:54 06/14/24 16:00 06/14/24 18:00 Temperature Pulse Rate 106 H 95 Respiratory Rate Blood Pressure Pulse Oximetry Oxygen Delivery Room Air 06/14/24 19:34 06/14/24 20:35 06/14/24 20:00 Temperature 99 F Pulse Rate 65 85 58 L Respiratory Rate 16 Blood Pressure 140/68 Pulse Oximetry 100 Oxygen Delivery 06/14/24 22:00 06/14/24 20:30 06/15/24 00:23 Temperature 97.6 F Pulse Rate 64 76 Respiratory Rate 16 Blood Pressure 158/74 H Pulse Oximetry 100 Oxygen Delivery Room Air 06/15/24 00:00 06/15/24 00:00 06/15/24 02:00 Temperature Pulse Rate 52 L 50 L Respiratory Rate Blood Pressure Pulse Oximetry Oxygen Delivery Room Air 06/15/24 04:03 06/15/24 04:00 06/15/24 04:00 Temperature 97.6 F Pulse Rate 54 L 51 L Respiratory Rate 16 Blood Pressure 140/70 Pulse Oximetry 100 Oxygen Delivery Room Air 06/15/24 06:00 06/15/24 07:28 06/15/24 09:33 Temperature Pulse Rate 51 L 86 82 Respiratory Rate 14 Blood Pressure 172/66 H Pulse Oximetry 98 Oxygen Delivery 06/15/24 08:00 06/15/24 08:00 06/15/24 09:49 Temperature Pulse Rate 88 79 Respiratory Rate Blood Pressure Pulse Oximetry 98 Oxygen Delivery Room Air 06/15/24 10:08 06/15/24 11:35 06/15/24 11:43 Temperature Pulse Rate Respiratory Rate Blood Pressure Pulse Oximetry Oxygen Delivery Room Air Room Air Room Air 06/15/24 12:00 Temperature Pulse Rate 69 Respiratory Rate Blood Pressure Pulse Oximetry Oxygen Delivery Intake/Output Intake/Output: Intake & Output 06/12/24 06/13/24 06/14/24 06/15/24 23:59 23:59 23:59 23:59 Intake Total 860 660 Output Total 450 500 Balance 410 160 Meds/Results Medications: Active Medications Generic Name Dose Route Start Last Admin Trade Name Freq PRN Reason Stop Dose Admin Acetaminophen 650 mg 06/13/24 16:34 Acetaminophen 325 Mg Tablet PO Q4H PRN Mild Pain (1-3) or Fever Hydrocodone Bitart/Acetaminophen 1 tab 06/13/24 16:34 Hydrocodone/Acetaminophen (*Crx) 5-325 Mg Tablet PO Q4H PRN Pain Rated 4-6 Apixaban 2.5 mg 06/14/24 21:00 06/15/24 09:33 Apixaban 2.5 Mg Tablet PO 2.5 mg Q12HR JACKIE Administration Aspirin 81 mg 06/14/24 08:00 06/15/24 09:33 Aspirin 81 Mg Chewable Tablet PO 81 mg DAILY@0800 JACKIE Administration Metoprolol Succinate 25 mg 06/16/24 09:00 Metoprolol Succinate Ext Rel 25 Mg Tabcr PO QAM JACKIE Nitroglycerin 0.4 mg 06/13/24 17:32 Nitroglycerin Sl 0.4 Mg Tablet SUBLINGUAL Q5MIN PRN Chest Pain Ondansetron HCl 4 mg 06/13/24 16:34 Ondansetron Inj 4 Mg/2 Ml Vial IV PUSH Q4H PRN Nausea Perflutren Lipid Microsphere 0 ml 06/13/24 17:31 Perflutren Lipid Microspheres 1.5 Ml Vial Diluted To 10 Ml Total Volume IV PUSH 06/16/24 17:31 ONCE PRN adequate visualization Protocol Radiology Results: ITS Impressions Head CT 06/13/24 13:16 IMPRESSION: 1. Normal aging brain. No acute intracranial process. Chest X-Ray 06/13/24 13:21 IMPRESSION: 1. Mild scarring at the lung apices. 2. Cardiomegaly. Venous Doppler Study 06/14/24 08:50 IMPRESSION: 1. No deep venous thrombosis. Brain MRI 06/14/24 09:19 IMPRESSION: 1. Normal aging brain. Labs Labs: Laboratory Results - last 24 hr 06/15/24 06/15/24 04:20 04:20 Lactic Acid 0.7 Total Creatine Kinase Cancelled 119 Troponin I 0.031
--- NOTE | 2024-06-15 14:15 | P.CONNEU_ITS ---
Assessment and Plan Assessment and plan (1) Transient ischemic attack (TIA): Code(s): G45.9 - Transient cerebral ischemic attack, unspecified Status: Acute (2) Atrial fibrillation: Code(s): I48.91 - Unspecified atrial fibrillation Status: Acute Plan 1. TIA 2. Atrial fibrillation 3. Neuro examination at this stage is stable with negative brain MRI and normal echocardiogram. Patient will be discharged on anticoagulation therapy the instruction to return to the silver steward for the follow-up and also follow-up with the Neurology in 6 months Consult date: 06/18/24 HPI: Hetal Scott is a 88 year old female admitted to the hospital through the emergency room with complaints of both lower extremities weakness somewhat more on the left as compared to the right reportedly she was walking down the steps when she suddenly developed weakness with no involvement of the upper extremities or the speech and no associated headache on initial arrival in the emergency room she was documented to have no drug allergies, reported that she had the similar symptomatology year ago , she has no history of being a smoker, alcohol drinking, and her initial exam in the emergency room was normal with normal vital signs except blood pressure 187/84 and pulse rate of 105, CBC was normal, BMP was normal, and complete lab otherwise was normal except for a troponin was 0.[address] scan of the head negative for the bleed x-ray chest compatible with the cardiomegaly EKG without any atrial fibrillation and subsequently echocardiogram has already been done which is normal without any systolic dysfunction or valvular disease, her MRI of the brain is normal, venous Doppler study is negative cardiology consultation has been obtained with history of unspecified atrial fibrillation and has also been documented to have no acute coronary syndrome, and he has added the metoprolol 50mg twice a day for paroxysmal atrial fibrillation in addition to Eliquis 2.5mg b.i.d. subsequently metoprolol has been increased to25mg daily initially she did receive the Dovonex intravenously with chads Vasc score of 4 [facility] Past Medical History Medical History Healthy female adult Transient ischemic attack (TIA) Surgical History Surgical History No pertinent past surgical history Social History Social History Smoking status: Never smoker Alcohol intake: never Substance use: never Do You Feel Safe in your Home?: Yes Lack of Transportation: No Lack of Food: Never True Current Housing: I Have Housing Concerned About Future Housing: No Difficulty Paying Gas/Electric Bills: No Difficulty Paying for Meds: No Currently Unemployed: No Education: High School Diploma/GED Difficulty w/ Childcare or Family Care: No Spiritual care concerns: No Meds Home Medications and Allergies Home Medications Medication Instructions Recorded Confirmed Type apixaban 2.5 mg tablet (Eliquis) 2.5 mg PO Q12HR #60 tabs 06/17/24 Rx metoprolol succinate 25 mg 25 mg PO QAM #30 tabs 06/17/24 Rx tablet,extended release 24 hr (Toprol XL) rosuvastatin 5 mg tablet (Crestor) 5 mg PO DAILY #30 tabs 06/17/24 Rx Allergies Allergy/AdvReac Type Severity Reaction Status Date / Time No Known Allergies Allergy Unknown Unverified 03/17/05 11:45 Vital Signs Vital Signs - 24 hr 06/14/24 15:17 06/14/24 15:54 06/14/24 16:00 Temperature 36.8 C Pulse Rate 92 106 H Respiratory Rate 16 Blood Pressure 160/65 H Pulse Oximetry 95 Oxygen Delivery Room Air 06/14/24 18:00 06/14/24 19:34 06/14/24 20:35 Temperature 37.2 C Pulse Rate 95 65 85 Respiratory Rate 16 Blood Pressure 140/68 Pulse Oximetry 100 Oxygen Delivery 06/14/24 20:00 06/14/24 22:00 06/14/24 20:30 Temperature Pulse Rate 58 L 64 Respiratory Rate Blood Pressure Pulse Oximetry Oxygen Delivery Room Air 06/15/24 00:23 06/15/24 00:00 06/15/24 00:00 Temperature 36.4 C Pulse Rate 76 52 L Respiratory Rate 16 Blood Pressure 158/74 H Pulse Oximetry 100 Oxygen Delivery Room Air 06/15/24 02:00 06/15/24 04:03 06/15/24 04:00 Temperature 36.4 C Pulse Rate 50 L 54 L Respiratory Rate 16 Blood Pressure 140/70 Pulse Oximetry 100 Oxygen Delivery Room Air 06/15/24 04:00 06/15/24 06:00 06/15/24 07:28 Temperature Pulse Rate 51 L 51 L 86 Respiratory Rate 14 Blood Pressure 172/66 H Pulse Oximetry 98 Oxygen Delivery 06/15/24 09:33 06/15/24 08:00 06/15/24 08:00 Temperature Pulse Rate 82 88 Respiratory Rate Blood Pressure Pulse Oximetry 98 Oxygen Delivery Room Air 06/15/24 09:49 06/15/24 10:08 06/15/24 11:35 Temperature Pulse Rate 79 Respiratory Rate Blood Pressure Pulse Oximetry Oxygen Delivery Room Air Room Air 06/15/24 11:43 06/15/24 12:00 Temperature Pulse Rate 69 Respiratory Rate Blood Pressure Pulse Oximetry Oxygen Delivery Room Air Exam Narrative: exam today revealed her to be awake alert cooperative in no obvious acute distress, his speech not dysphasic not dysarthric not dysphonic, pupils round regular reacting to light equally, extraocular movements full with no nystagmus, facial sensation intact face symmetrical tongue midline uvula midline motor examination of the upper and lower extremities revealed normal strength and tone with no abnormal movements and deep tendon reflexes are symmetrical plantars are downgoing there is no evidence of gross sensory or cerebellar deficit Results Labs 06/14/24 04:13 06/14/24 04:13 Labs: Cardiac Enzymes 06/15/24 06/15/24 Range/Units 04:20 04:20 Total Creatine Kinase Cancelled 119 Troponin I 0.031 (0.000-0.034) ng/mL
[2024-06-16] VITALS (10 sets, daily range): BP systolic 144–175; BP diastolic 67–76; PULSE 48–117; RESP 14–20; TEMP 36.5–36.7; O2SAT 94–97
[2024-06-16] MEDS: METOPROLOL SUCCINATE EXT REL 25 MG TABCR PO (08:12)
[2024-06-16] MEDS: APIXABAN 2.5 MG TABLET PO ×2 (08:12→20:27)
[2024-06-16] MEDS: ASPIRIN 81 MG CHEWABLE TABLET PO (08:12)
--- NOTE | 2024-06-16 11:38 | WPDNEUROPN ---
Progress Note: A&P Assessment and Plan (1) Transient ischemic attack (TIA): Code(s): G45.9 - Transient cerebral ischemic attack, unspecified Status: Acute (2) Atrial fibrillation: Code(s): I48.91 - Unspecified atrial fibrillation Status: Acute Plan The patient is on Eliquis in view of the finding of a atrial fibrillation. LDL was 79. Hence I will suggest to add Crestor at 5 mg a day and a follow-up her lipid profile. We should try to keep her LDL under 65. I have reviewed her current workup. She should continue to follow-up with primary care provider and Cardiology. Subjective Date/time seen: 06/16/24 11:38 Interval history: 88-year-old presented with right lower limb weakness now improved. She is able to walk with a walker. Prior to admission she was able to walk without any support. She was found to have atrial fibrillation and now was on Eliquis. Her LDL was 79. She is currently not on any statins. Echocardiogram was within normal range. MRI also did not show any significant abnormalities. She also had MRI of the lumbosacral spine that shows a disc herniation to the left side at L4-5 level in addition to central canal stenosis at L4-5 level. No prior history of stroke. Review of Systems Review of Systems: All systems reviewed & are unremarkable except as noted in HPI and below Exam Const: General: cooperative, well developed and alert Orientation/consciousness: patient oriented x3 HENMT: Head: atraumatic Eyes: Alignment and Position: position normal Pupils: Equal, round and reactive pupils present EOM: EOMs intact bilaterally Resp: Effort & Inspection: normal respiratory effort Neuro: General: patient oriented x3 Cranial nerves: Yes CN's II-XII intact bilaterally, Yes facial sensation intact/muscles of mastication intact, Yes Equal, round and reactive pupils present, Yes facial symmetry and Yes Midline tongue present Cognition (Neuro): normal cognition Speech: normal speech Motor exam (neuro): 5/5 motor strength present throughout Sensory Exam: normal sensation Coordination: [id number] test normal and Normal rapid alternating movements of the distal upper extremity present (Neuro) Objective Data Vital Signs Vital Signs: Vital Signs - 24 hr 06/15/24 11:43 06/15/24 12:00 06/15/24 14:21 Temperature 97.7 F Pulse Rate 69 65 Respiratory Rate 18 Blood Pressure 138/75 Pulse Oximetry 99 Oxygen Delivery Room Air 06/15/24 16:00 06/15/24 20:21 06/15/24 20:50 Temperature 97.7 F Pulse Rate 78 72 72 Respiratory Rate 18 18 Blood Pressure 152/76 H Pulse Oximetry 97 97 Oxygen Delivery Room Air 06/15/24 20:00 06/16/24 00:05 06/16/24 04:01 Temperature Pulse Rate 71 71 48 L Respiratory Rate Blood Pressure Pulse Oximetry Oxygen Delivery 06/16/24 06:09 06/16/24 08:12 06/16/24 08:00 Temperature 98.0 F Pulse Rate 73 117 H Respiratory Rate 14 Blood Pressure 160/67 H Pulse Oximetry 94 Oxygen Delivery Room Air 06/16/24 08:00 Temperature Pulse Rate 60 Respiratory Rate Blood Pressure Pulse Oximetry Oxygen Delivery Intake/Output Intake/Output: Intake & Output 06/13/24 06/14/24 06/15/24 06/16/24 23:59 23:59 23:59 23:59 Intake Total 860 1140 880 Output Total 450 500 Balance 410 640 880 Meds/Results Medications: Active Medications Generic Name Dose Route Start Last Admin Trade Name Freq PRN Reason Stop Dose Admin Acetaminophen 650 mg 06/13/24 16:34 Acetaminophen 325 Mg Tablet PO Q4H PRN Mild Pain (1-3) or Fever Hydrocodone Bitart/Acetaminophen 1 tab 06/13/24 16:34 Hydrocodone/Acetaminophen (*Crx) 5-325 Mg Tablet PO Q4H PRN Pain Rated 4-6 Apixaban 2.5 mg 06/14/24 21:00 06/16/24 08:12 Apixaban 2.5 Mg Tablet PO 2.5 mg Q12HR JACKIE Administration Metoprolol Succinate 25 mg 06/16/24 09:00 06/16/24 08:12 Metoprolol Succinate Ext Rel 25 Mg Tabcr PO 25 mg QAM JACKIE Administration Nitroglycerin 0.4 mg 06/13/24 17:32 Nitroglycerin Sl 0.4 Mg Tablet SUBLINGUAL Q5MIN PRN Chest Pain Ondansetron HCl 4 mg 06/13/24 16:34 Ondansetron Inj 4 Mg/2 Ml Vial IV PUSH Q4H PRN Nausea Perflutren Lipid Microsphere 0 ml 06/13/24 17:31 Perflutren Lipid Microspheres 1.5 Ml Vial Diluted To 10 Ml Total Volume IV PUSH 06/16/24 17:31 ONCE PRN adequate visualization Protocol Radiology Results: ITS Impressions Head CT 06/13/24 13:16 IMPRESSION: 1. Normal aging brain. No acute intracranial process. Chest X-Ray 06/13/24 13:21 IMPRESSION: 1. Mild scarring at the lung apices. 2. Cardiomegaly. Venous Doppler Study 06/14/24 08:50 IMPRESSION: 1. No deep venous thrombosis. Brain MRI 06/14/24 09:19 IMPRESSION: 1. Normal aging brain. Lumbar Spine MRI 06/15/24 16:18 IMPRESSION: 10 x 13 mm left subarticular L4-5 disc extrusion. Severe central canal stenosis at L4-5 secondary to degenerative disc, ligamentum and facet changes. Multilevel moderate neural foraminal narrowing. Moderate-severe degrees of facet arthropathy at all lumbar levels.
--- NOTE | 2024-06-16 14:03 | PM.IMPN ---
Progress Note: A&P Assessment and Plan (1) Lower extremity weakness: Qualifiers: Laterality: bilateral Qualified Code(s): R29.898 - Other symptoms and signs involving the musculoskeletal system Code(s): R29.898 - Other symptoms and signs involving the musculoskeletal system Status: Acute Assessment and Plan: right leg weakness reported , transient. hx notes bialteral lower ext weakness left more than right. currenlty no weakness noted. will have PT OT see. Brain MRI negative. - CT Head: normal aging brain. No acute intracranial process. - echo w/Bubble ordered - neuro checks Q4 - monitor daily labs, lipid panel, A1C - asymmetric edema to lower extremities, left worse than right. Ultrasound negative for DVT on LLE Lower extremity weakness suspect spinal etiology Lumbar spine MRI with disc bulge and severe spinal stenosis. Neurosurgery consulted (2) Elevated troponin: Code(s): R79.89 - Other specified abnormal findings of blood chemistry Status: Acute Assessment and Plan: - EKG, initial: normal sinus rhythm, rate 90, frequent PACs, left axis deviation, borderline AV conduction delay, possible right ventricular conduction delay, delayed precordial RS transition, borderline T-wave abnormality in anterior leads. No previous available for comparison. - EKG, repeat (1): No significant change when compared to prior - CXR: Mild scarring at the lung apices and cardiomegaly - Troponin: 0.122->0.141, flat trend - ASA 324 given and SL nitro PRN - cardiology consulted, awaiting recs - started on Lovenox 1 mg/kg b.i.d. - no previous echo on file, ordered - telemetry monitoring afib noted on telelmetry. add betablocker; CHADSVasc score 4 willl need anticoagulation. eliquis started (3) Atrial fibrillation: Code(s): I48.91 - Unspecified atrial fibrillation Status: Acute Assessment and Plan: afib noted on telelmetry. add betablocker CHADSVasc score 4 willl need anticoagulation. eliquis planned currently on lovenox echo normal EF with no significant valvular disease Plan Diet: Heart healthy GI Prophylaxis: Not currently indicated DVT Prophylaxis: Lovenox b.i.d. Lines: Peripheral Code Status: Full code Subjective Date/time seen: 06/16/24 14:03 Interval history: Feeling better. More stronger. Discussed MRI finding. Review of Systems Review of Systems: All systems reviewed & are unremarkable except as noted in HPI and below Exam Narrative: GENERAL: Well-appearing, well-nourished, and in no acute distress. HEAD: Normocephalic, atraumatic. ENT: Mucous membranes moist. CHEST: Clear to auscultation. No respiratory distress. HEART: Regular rate and rhythm. Normal peripheral pulses. ABDOMEN: Soft, nontender, nondistended. EXTREMITIES: Normal range of motion. No edema. SKIN: Warm, dry, no rash. NEURO: Alert and oriented x3. No lower extremity drift. Sensation grossly intact. PSYCH: Normal mood and affect. Objective Data Vital Signs Vital Signs: Vital Signs - 24 hr 06/15/24 14:21 06/15/24 16:00 06/15/24 20:21 Temperature 97.7 F 97.7 F Pulse Rate 65 78 72 Respiratory Rate 18 18 Blood Pressure 138/75 152/76 H Pulse Oximetry 99 97 Oxygen Delivery 06/15/24 20:50 06/15/24 20:00 06/16/24 00:05 Temperature Pulse Rate 72 71 71 Respiratory Rate 18 Blood Pressure Pulse Oximetry 97 Oxygen Delivery Room Air 06/16/24 04:01 06/16/24 06:09 06/16/24 08:12 Temperature 98.0 F Pulse Rate 48 L 73 117 H Respiratory Rate 14 Blood Pressure 160/67 H Pulse Oximetry 94 Oxygen Delivery 06/16/24 08:00 06/16/24 08:00 06/16/24 12:00 Temperature Pulse Rate 60 76 Respiratory Rate Blood Pressure Pulse Oximetry Oxygen Delivery Room Air 06/16/24 14:00 Temperature 97.7 F Pulse Rate 78 Respiratory Rate 16 Blood Pressure 144/76 H Pulse Oximetry 97 Oxygen Delivery Intake/Output Intake/Output: Intake & Output 06/13/24 06/14/24 06/15/24 06/16/24 23:59 23:59 23:59 23:59 Intake Total 860 1140 1210 Output Total 450 500 Balance 401 818 6656 Meds/Results Medications: Active Medications Generic Name Dose Route Start Last Admin Trade Name Freq PRN Reason Stop Dose Admin Acetaminophen 650 mg 06/13/24 16:34 Acetaminophen 325 Mg Tablet PO Q4H PRN Mild Pain (1-3) or Fever Hydrocodone Bitart/Acetaminophen 1 tab 06/13/24 16:34 Hydrocodone/Acetaminophen (*Crx) 5-325 Mg Tablet PO Q4H PRN Pain Rated 4-6 Apixaban 2.5 mg 06/14/24 21:00 06/16/24 08:12 Apixaban 2.5 Mg Tablet PO 2.5 mg Q12HR JACKIE Administration Metoprolol Succinate 25 mg 06/16/24 09:00 06/16/24 08:12 Metoprolol Succinate Ext Rel 25 Mg Tabcr PO 25 mg QAM JACKIE Administration Nitroglycerin 0.4 mg 06/13/24 17:32 Nitroglycerin Sl 0.4 Mg Tablet SUBLINGUAL Q5MIN PRN Chest Pain Ondansetron HCl 4 mg 06/13/24 16:34 Ondansetron Inj 4 Mg/2 Ml Vial IV PUSH Q4H PRN Nausea Perflutren Lipid Microsphere 0 ml 06/13/24 17:31 Perflutren Lipid Microspheres 1.5 Ml Vial Diluted To 10 Ml Total Volume IV PUSH 06/16/24 17:31 ONCE PRN adequate visualization Protocol Rosuvastatin Calcium 5 mg 06/17/24 09:00 Rosuvastatin 5 Mg Tablet PO DAILY ON LICENSE OF [facility] Radiology Results: ITS Impressions Head CT 06/13/24 13:16 IMPRESSION: 1. Normal aging brain. No acute intracranial process. Chest X-Ray 06/13/24 13:21 IMPRESSION: 1. Mild scarring at the lung apices. 2. Cardiomegaly. Venous Doppler Study 06/14/24 08:50 IMPRESSION: 1. No deep venous thrombosis. Brain MRI 06/14/24 09:19 IMPRESSION: 1. Normal aging brain. Lumbar Spine MRI 06/15/24 16:18 IMPRESSION: 10 x 13 mm left subarticular L4-5 disc extrusion. Severe central canal stenosis at L4-5 secondary to degenerative disc, ligamentum and facet changes. Multilevel moderate neural foraminal narrowing. Moderate-severe degrees of facet arthropathy at all lumbar levels.
--- NOTE | 2024-06-16 18:59 | P.CONNS_ITS ---
Assessment and Plan Assessment and plan (1) Atrial fibrillation: Code(s): I48.91 - Unspecified atrial fibrillation Status: Acute Plan Ms. Scott is an 88-year-old female who is otherwise very healthy who was admitted to the hospital on June 13 with acute onset of a sense of weakness in both legs without any associated pain, paresthesias, upper extremity symptoms, or bowel or bladder changes. she describes 1 similar episode about a year ago in which she had transient weakness of her right foot. Her symptoms have been improving spontaneously, and she has been able to ambulate with physical therapy. I do not detect any focal deficits on her physical exam, although she does have a positive Babinski's on the right side. I reviewed her MRI lumbar spine on which she certainly has multilevel chronic degenerative changes in a disc herniation on the left side at L4-5 causing lateral recess stenosis, but I do not see any findings that would explain her sudden-onset bilateral leg weakness. I do not see any areas of high-grade central stenosis. If her symptoms were related to her spine, I suspect it would be originating from the thoracic spine. However, since her symptoms are essentially resolved at this point, I do not think that further workup is necessary. I agree with physical therapy on an inpatient and outpatient basis. If her symptoms were to recur, I would recommend at least an MRI thoracic spine without contrast. One might also consider vascular imaging of her abdomen and pelvis. Consult date: 06/16/24 HPI: Hetal Scott is a 88 year old female With recent diagnosis of atrial fibrillation but otherwise is very healthy who was admitted to the hospital on Sunday with acute onset of lower extremity weakness. She was going down a step at her house on June 12 when she suddenly was unable to move her right foot. This was followed by a sense of her legs bilaterally feeling like jelly. Her family got her a walker which she used that day, but her symptoms persisted, and she came to the hospital the following day. On admission, there is a concern for elevated troponins as well as for atrial fibrillation. cardiology was not concerned about an MRI but did recommend starting Eliquis for the AFib. MRIs of her brain and lumbar spine were obtained over the weekend as well as an echo of her heart. I was consulted this morning regarding her MRI lumbar spine. Currently, she states that her symptoms have been improving. She worked with therapy today and has been able to ambulate with a walker. Her strength is gradually improving. She had a similar episode about a year ago when she was going to her mailbox and also could not move her right foot. This was fairly transient and did not occur again until this past week. She denies any chronic or acute back pain, leg pain, paresthesias, or bowel or bladder changes. She denies any symptoms in her neck or upper extremities. She is otherwise feeling quite well. She lives at home with her son in normally ambulates independently. She has not seen a physician in nearly 20 years. Review of Systems Review of Systems: All systems reviewed & are unremarkable except as noted in HPI and below PMFSH Past Medical History Medical History (Updated 06/16/24 @ 11:42 by Andrew Hansen MD) Healthy female adult Transient ischemic attack (TIA) Surgical History Surgical History No pertinent past surgical history Social History Social History Smoking status: Never smoker Alcohol intake: never Substance use: never Do You Feel Safe in your Home?: Yes Lack of Transportation: No Lack of Food: Never True Current Housing: I Have Housing Concerned About Future Housing: No Difficulty Paying Gas/Electric Bills: No Difficulty Paying for Meds: No Currently Unemployed: No Education: High School Diploma/GED Difficulty w/ Childcare or Family Care: No Spiritual care concerns: No Meds Home Medications and Allergies Home Medications Medication Instructions Recorded Confirmed Type No Home Medications 06/15/24 06/15/24 History Allergies Allergy/AdvReac Type Severity Reaction Status Date / Time No Known Allergies Allergy Unknown Unverified 03/17/05 11:45 Vital Signs Vital Signs - 24 hr 06/15/24 20:21 06/15/24 20:50 06/15/24 20:00 Temperature 97.7 F Pulse Rate 72 72 71 Respiratory Rate 18 18 Blood Pressure 152/76 H Pulse Oximetry 97 97 Oxygen Delivery Room Air 06/16/24 00:05 06/16/24 04:01 06/16/24 06:09 Temperature 98.0 F Pulse Rate 71 48 L 73 Respiratory Rate 14 Blood Pressure 160/67 H Pulse Oximetry 94 Oxygen Delivery 06/16/24 08:12 06/16/24 08:00 06/16/24 08:00 Temperature Pulse Rate 117 H 60 Respiratory Rate Blood Pressure Pulse Oximetry Oxygen Delivery Room Air 06/16/24 12:00 06/16/24 14:00 06/16/24 16:00 Temperature 97.7 F Pulse Rate 76 78 79 Respiratory Rate 16 Blood Pressure 144/76 H Pulse Oximetry 97 Oxygen Delivery Exam Narrative: Positive Babinski on right Unless otherwise stated above, the patient's physical exam is as follows: General: -Well developed and well nourished. No a cute distress. Cooperative with exam. Mental status: -Awake and oriented to person, place, an d time. Integumentary: -No obvious skin lesions or masses Motor: -Muscle tone normal without spasticity o f flaccidity. No atrophy. No fasciculations. -No pronator drift -Right upper extremity: deltoid 5/5, bic eps 5/5, triceps 5/5, wrist extensors 5/5, wrist flexors 5/5, intrinsics 5/5 -Left upper extremity: deltoid 5/5, rich ps 5/5, triceps 5/5, wrist extensors 5/5, wrist flexors 5/5, intrinsics 5/5 -Right lower extremity: iliopsoas 5/5, q uadriceps 5/5, hamstrings 5/5, tibialis anterior 5/5, gastroc-soleus 5/5, EHL 5/5 -Left lower extremity: iliopsoas 5/5, qu adriceps 5/5, hamstrings 5/5, tibialis anterior 5/5, gastroc-soleus 5/5, EHL 5/5 Sensory: -Intact to light touch throughout -Normal proprioception throughout Reflexes: -1-2+ DTR's throughout -No Moser's, clonus, or Babinski bilat erally Musculoskeletal: -Lumbar spine: no tenderness to palpatio n, no pain, and normal lumbosacral spine movements -[id number]-prg-[id number] test negative -Hip: normal range of motion, no crepitu s bilaterally. No pain reproduced on KATY or FAIR testing bilaterally -Knee: no instability, subluxation or la xity, and no crepitus bilaterally Results Labs 06/14/24 04:13 06/14/24 04:13 Imaging My impression: I personally reviewed the MRI brain which is relatively unremarkable. I do not see any acute pathology that could explain her symptoms. I personally reviewed the MRI lumbar spine which does show multiple areas of degenerative disc disease, a grade 1 spondylolisthesis at L4-5, a left-sided disc herniation L4-5 which is cranially migrated and is causing lateral recess stenosis. there is [id number] central stenosis at L4-5. There are multiple areas of facet arthropathy. I do not see any areas of high-grade central stenosis
[2024-06-17] VITALS: PULSE 56
[2024-06-17 04:00] VITALS: PULSE 51
[2024-06-17 05:39] VITALS: BP 148/77; PULSE 63; RESP 20; TEMP 36; O2SAT 95
[2024-06-17 08:45] VITALS: PULSE 87; O2SAT 96
[2024-06-17 08:46] VITALS: PULSE 88
[2024-06-17] MEDS: APIXABAN 2.5 MG TABLET PO (08:46)
[2024-06-17] MEDS: METOPROLOL SUCCINATE EXT REL 25 MG TABCR PO (08:46)
[2024-06-17] MEDS: ROSUVASTATIN 5 MG TABLET PO (08:46)
[2024-06-17 12:00] VITALS: PULSE 85
--- NOTE | 2024-06-17 13:57 | PM.DS ---
DS: Admitting Diagnosis Discharge Date 06/17/2024 Admitting Diagnosis Lower extremity weakness DS: Discharge Diagnosis Discharge Diagnosis (1) Lower extremity weakness: Qualifiers: Laterality: bilateral Qualified Code(s): R29.898 - Other symptoms and signs involving the musculoskeletal system Code(s): R29.898 - Other symptoms and signs involving the musculoskeletal system Status: Acute (2) Elevated troponin: Code(s): R79.89 - Other specified abnormal findings of blood chemistry Status: Acute (3) Atrial fibrillation: Code(s): I48.91 - Unspecified atrial fibrillation Status: Acute DS: Summary Hospital Course Hospital Course: # Lower extremity weakness: right leg weakness reported , transient. hx notes bialteral lower ext weakness left more than right. currenlty no weakness noted. Brain MRI negative. - CT Head: normal aging brain. No acute intracranial process. - echo w/Bubble reviewed - asymmetric edema to lower extremities, left worse than right. Ultrasound negative for DVT on LLE Suspected spinal etiology. Lumbar spine MRI with disc bulge and severe spinal stenosis. Neurosurgery consulted and recommends physical therapy She may need a thoracic MRI as an outpatient basis if the symptoms recur. # Elevated troponin: - EKG, initial: normal sinus rhythm, rate 90, frequent PACs, left axis deviation, borderline AV conduction delay, possible right ventricular conduction delay, delayed precordial RS transition, borderline T-wave abnormality in anterior leads. No previous available for comparison. - EKG, repeat (1): No significant change when compared to prior - CXR: Mild scarring at the lung apices and cardiomegaly - Troponin: 0.122->0.141, flat trend - ASA 324 given and SL nitro PRN - cardiology consulted - started on Lovenox 1 mg/kg b.i.d. - no previous echo on file, ordered - telemetry monitoring afib noted on telelmetry. add betablocker; CHADSVasc score 4 willl need anticoagulation. eliquis started # Atrial fibrillation: Newly diagnosed. Afib noted on telelmetry. add betablocker CHADSVasc score 4 willl need anticoagulation. eliquis planned currently on lovenox echo normal EF with no significant valvular disease Code status full code Diet: Heart healthy GI Prophylaxis: Not currently indicated DVT Prophylaxis: Lovenox b.i.d. Lines: Peripheral Time Spent with Patient Time attestation: Total time spent providing and/or coordinating discharge services: 35 minutes Exam Narrative: GENERAL: Well-appearing, well-nourished, and in no acute distress. HEAD: Normocephalic, atraumatic. ENT: Mucous membranes moist. CHEST: Clear to auscultation. No respiratory distress. HEART: Regular rate and rhythm. Normal peripheral pulses. ABDOMEN: Soft, nontender, nondistended. EXTREMITIES: Normal range of motion. No edema. SKIN: Warm, dry, no rash. NEURO: Alert and oriented x3. No lower extremity drift. Sensation grossly intact. PSYCH: Normal mood and affect. DS: Data Data Completed and Pending Completed studies during hospitalization: Exam Type: CA echo doppler w bubble study Study Info Indications - elevated troponin, weakness cocerning for cva Complete two-dimensional, color flow and Doppler transthoracic echocardiogram is performed with agitated saline. Summary 1. There is normal biventricular systolic function. 2. There is no significant valvular disease. Left Ventricle The left ventricle is normal in size and systolic function. There is left ventricular concentric remodeling. The left ventricular ejection fraction is estimated to be 65-70%. Right Ventricle The right ventricle is normal in size and systolic function. Left Atria The left atrium is normal in size. Right Atria The right atrium is normal in size. Atrial Septum The atrial septum appears visually intact. Aortic Valve The aortic valve is trileaflet and opens well. There is no aortic regurgitation. Pulmonic Valve The pulmonic valve is grossly normal. There is no color Doppler evidence of pulmonic valve regurgitation. Mitral Valve The mitral valve is sclerotic. There is trace mitral regurgitation. Tricuspid Valve The tricuspid valve is grossly normal. There is mild tricuspid regurgitation. Pericardium/Pleural Pericardium is normal in appearance with no evidence for significant pericardial effusion. Inferior Vena Cava Inferior vena cava is not well visualized. Aorta The aorta root at the level of the sinus of Valsalva measures 3.5 cm in diameter. Imaging Radiologist's impression: ITS Impressions Head CT 06/13/24 13:16 IMPRESSION: 1. Normal aging brain. No acute intracranial process. Chest X-Ray 06/13/24 13:21 IMPRESSION: 1. Mild scarring at the lung apices. 2. Cardiomegaly. Venous Doppler Study 06/14/24 08:50 IMPRESSION: 1. No deep venous thrombosis. Brain MRI 06/14/24 09:19 IMPRESSION: 1. Normal aging brain. Lumbar Spine MRI 06/15/24 16:18 IMPRESSION: 10 x 13 mm left subarticular L4-5 disc extrusion. Severe central canal stenosis at L4-5 secondary to degenerative disc, ligamentum and facet changes. Multilevel moderate neural foraminal narrowing. Moderate-severe degrees of facet arthropathy at all lumbar levels. Discharge Plan Discharge Attending physician on discharge: Ian Monroy Consulting providers: Harinder Moser; Layne Garcia; Bar Chung; Ade Stanley Discharging Clinician: Ian Monroy Anticipated Discharge Date/Time: 06/17/24 14:01 Patient Disposition: Home, Self-Care Activity: as tolerated Diet: heart healthy Patient Instructions: Antibiotic Form Stand Alone Forms: General Discharge Information Follow-up/Referrals: Harinder Moser MD [Physician] - 1 Week Layne Garcia DO [Physician] - 4 Weeks Discharge Medications: New Eliquis 2.5 mg Tablet 2.5 mg PO Q12HR Qty: 60 0RF rosuvastatin [Crestor] 5 mg Tablet 5 mg PO DAILY Qty: 30 0RF metoprolol succinate [Toprol XL] 25 mg Tablet Extended Release 24 Hr 25 mg PO QAM Qty: 30 0RF No Action No Home Medications Date of admission: 06/14/24 14:37 Primary Care Provider: PHYSICIAN,[employer] Admitting Provider: Ian Monroy Attending physician on admission: Ian Monroy Condition: Improved
== END 2024-06-17 14:47 | disposition home or self-care (01) | DRG 69 ==
LOC: ANHED 13:24 → ANHIMU 17:08 → ANH2MED 06-15 11:22
PROVIDERS: Internal Medicine; Student in an Organized Health Care Education/Training Program; Admitting Provider Internal Medicine; Emergency Provider Emergency Medicine; Visit Provider Internal Medicine
DX: G45.9 Transient cerebral ischemic attack, unspecified (principal); I48.0 Paroxysmal atrial fibrillation; R29.898 Other symptoms and signs involving the musculoskeletal system; R79.89 Other specified abnormal findings of blood chemistry
CPT/HCPCS: 36415; 70450; 70553; 71045; 72158; 80053; 80061; 82550; 82948; 83036; 83605; 84484; 85025; 85610; 85730; 93005; 93306; 93971; 96372; 96375; 97110; 97161; 97165; 97530; 97535; 99285; A9270; A9577; G0378; J1650